=== PATIENT | female | born 1960 | race Caucasian/White ===

== ENCOUNTER 2016-12-12 06:45 | Inpatient (IN) ==
[2016-12-12] MEDS ORDERED: Lidocaine -MPF 1% 2 ML VIAL ID ONE (07:15)
[2016-12-12] MEDS ORDERED: ceFAZolin 1,000 MG in D5% in Water (Mini-Bag+) 100 ML IVPB ONE (07:16)
--- NOTE | 2016-12-12 07:19 | History & Physical Report ---
Date of Encounter: 12/12/16 Time of Encounter: 07:17 24 Hour HP Update - Instructions Instructions: If the History and Physical is less than 30 days old and was completed prior to A.M. admission and or procedure and has NOT been updated on calendar day of procedure please complete this update prior to performing procedure. - Update Patient reports changes in Medical Condition: No Changes in examination, assessment, or condition: No Changes in Medication: No Preop tests/diagnostics Reviewed: Yes Pre-Op MRSA Screen: Negative Surgery Remains Indicated: Yes Consent for Planned Operative Procedure(s) Verified: Yes - Pre-Operative Checklist Preoperative Checklist Indicated: No Prophylactic Antibiotic Ordered: Yes Home Medications Include Beta Amador: No Beta Amador Taken Today (Day of Surgery): No Beta Amador Taken Yesterday (Day Prior to Surgery): No Is VTE Prophylaxis Indicated?: NO
[2016-12-12] MEDS ORDERED: Albuterol 2.5 MG/3 ML NEBULIZER IH ONE (07:30)
[2016-12-12] MEDS ORDERED: *HR* Phenylephrine 10 MG/ML VIAL IVC ONE ×2 (08:01→10:13)
[2016-12-12] MEDS ORDERED: Albumin Human 25% 25 GM/100 ML IV.SOLN IV ONE ×2 (08:01→10:13)
[2016-12-12] MEDS ORDERED: Tranexamic Acid 1,000 MG/10 ML VIAL IV ONE ×2 (08:01→10:13)
[2016-12-12] MEDS ORDERED: Mannitol 25% vial 12.5 GM/50 ML VIAL IVP ONE ×2 (08:01→10:13)
[2016-12-12] MEDS ORDERED: *HR* Heparin 10,000 UNIT/10 ML VIAL IV ONE ×2 (08:01→10:13)
[2016-12-12] MEDS ORDERED: *HR* Magnesium Sulfate 2 GM/50 ML PIGGYBACK IVPB ONE ×2 (08:01→10:13)
[2016-12-12] MEDS ORDERED: Lidocaine 2% Syringe 100 MG/5 ML IV ONE ×2 (08:01→10:13)
--- NOTE | 2016-12-12 08:04 | Anesthesia Evaluation PreOp ---
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 HX Other Medical History: Denies Any Significant HX Anesthesia History: No Prior Anesthetic Complications, Past Anesthesia ( hysterctomy) Alcohol Use: occasionally, recent Drug use: none Medications and Allergies Aspirin [Lo-Dose Aspirin EC] 81 mg PO DAILY 11/23/16 [History] ClonazePAM [Klonopin] 1 mg PO BID 11/23/16 [History] Diltiazem HCl [Diltiazem 24Hr Cd] 120 mg PO DAILY 11/23/16 [History] Duloxetine HCl [Cymbalta] 120 mg PO DAILY 11/23/16 [History] Fluticasone Propionate Nasal [Flonase] 1 spray NS DAILY 11/23/16 [History] Gabapentin [Neurontin] 300 mg PO BID 11/23/16 [History] Hydroxychloroquine [Plaquenuil] 200 mg PO BID 11/23/16 [History] Lisinopril [Zestril] 5 mg PO DAILY 11/23/16 [History] Loratadine [Allergy Relief] 10 mg PO DAILY 11/23/16 [History] Methocarbamol [Robaxin-750] 750 mg PO TID 11/23/16 [History] Methotrexate [Otrexup] 12.5 mg PO FR 11/23/16 [History] Omeprazole [PriLOSEC] 40 mg PO DAILY 11/23/16 [History] PredniSONE 5 mg PO DAILY 11/23/16 [History] RisperiDONE [Risperidone] 2 mg PO HS 11/23/16 [History] Tramadol HCl [Ultram] 50 mg PO QID PRN 11/23/16 [History] Atorvastatin [Lipitor] 40 mg PO DAILY 12/12/16 [History] Calcium Carbonate [Calcium] 600 mg PO BID 12/12/16 [History] Hydrochlorothiazide 12.5 mg PO DAILY 12/12/16 [History] Varenicline Tartrate [Chantix] 1 mg PO BID 12/12/16 [History] Allergies No Known Allergies Allergy (Verified 12/12/16 07:25) - Meds/Allergy Pre-op Review Medications Reviewed: Yes Allergies Reviewed: Yes Beta Blockers on Current Med List: Yes If Beta Blockers taken, Date/Time (Last Dose taken): 12/12/2016 at 0735 Anesthesia Results - Labs Laboratory Tests 12/05/16 12/06/16 12/06/16 15:15 15:21 15:21 WBC 8.3 Hgb 11.4 L Hct 35.6 Plt Count 246 PT 11.0 INR 1.0 APTT 30.1 Sodium 134 L Potassium 4.0 BUN 13 Creatinine 0.92 - Imaging EKG: report reviewed (03/28/2016 SR, LVH) Additional studies: 11/23/2016 Cath normal coronaries severe per echo 04/23/2016 Echo LVEF 60% mild concentric LVH mild diastolic dysfunction moderate-severe , MG 36 mmHg, JULIA 0.& cm2 Anesthesia Exam O2 Sat Height 1.75 m Height 1.75 m Height 1.75 m Weight 94.801 kg Weight 94.801 kg Weight 94.801 kg O2 Sat by Pulse Oximetry 95 O2 Sat by Pulse Oximetry 95 O2 Sat by Pulse Oximetry 95 Vital Signs Temp Pulse Resp BP Pulse Ox 97.3 F L 89 18 110/72 95 12/12/16 07:12 12/12/16 07:12 12/12/16 07:12 12/12/16 07:12 12/12/16 07:12 Height: 5'9'' Weight: 209 lbs NPO (# of Hours): 8 Pain Scale: 0 Pain Scale Used: Numeric (1 - 10) - HEENT Pupil (Motor): EOMI Mallampati: II Teeth: Edentulous Oral Opening: Greater than 3 - PHOTO RETOUCHER LOC: Oriented PHOTO RETOUCHER Motor: Normal RUE, Normal LUE, Normal RLE, Normal LLE, Normal Face PHOTO RETOUCHER Sensory: Normal: RUE, LUE, RLE, LLE, Face - Cardiac Rhythm: Regular Murmur: None - Pulmonary Breath Sounds: bilateral Clear Respiratory Effort: Symmetrical Anesthesia Assess/Plan ASA Score: 4 Modified [place] Scale for Level of Consciousness: Cooperative, oriented, and tranquil Anesthetic Plan: General, Precautions (Patient understands that she is at increased risk for perioperative complications including myocardial infarct, arrhythmias, CVA, post op vent support/ICU stay, and . Patient wishes to proceed.) Monitoring Plan: Standard Monitors, A-Line, PAC, JUAN
[2016-12-12] MEDS ORDERED: *HR* Midazolam HCl 5 MG/5 ML VIAL IVP ONE (08:10)
[2016-12-12] MEDS ORDERED: *HR* FentaNYL (PF) 1,000 MCG/20 ML VIAL ONE (08:11)
[2016-12-12] MEDS ORDERED: *HR* Phenylephrine 10 MG/ML VIAL ONE (08:11)
[2016-12-12] MEDS ORDERED: Dexamethasone 4 MG/ML VIAL ONE (08:11)
[2016-12-12] MEDS ORDERED: *HR* Rocuronium Bromide 50 MG/5 ML VIAL ONE ×2 (08:11→09:29)
[2016-12-12] MEDS ORDERED: Ondansetron 4 MG/2 ML VIAL ONE (08:11)
[2016-12-12] MEDS ORDERED: Lidocaine 2% Syringe 100 MG/5 ML ONE (08:27)
[2016-12-12] MEDS ORDERED: Tranexamic Acid 1,000 MG/10 ML VIAL ONE (09:27)
[2016-12-12] MEDS ORDERED: Nitroglycerin 25 MG/250 ML INFUS..BTL IVC ONE (09:51)
[2016-12-12] MEDS ORDERED: Albumin Human 5% 50.0 GM/1,000 ML VIAL ONE (09:51)
[2016-12-12] MEDS ORDERED: niCARdipine 40 MG/200 ML MLS IVC ONE (09:51)
[2016-12-12] MEDS ORDERED: Protamine Sulfate 250 MG/25 ML VIAL IVP ONE (10:16)
[2016-12-12] MEDS ORDERED: Protamine Sulfate 50 MG/5 ML VIAL IVP ONE (10:16)
--- NOTE | 2016-12-12 13:10 | Operative Note ---
Date of procedure: 12/12/16 Pre-op diagnosis: Aortic stenosis, severe. Post-op diagnosis: same Procedure: 1. Aortic valve replacement (#25 Mosaic ultra porcine tissue valve). Implants: 1. #25 Mosaic ultra porcine tissue valve. Complications: None. Anesthesia: ZEYAD Surgeon: Teofilo Castro Operations Management Trainee: Robert Uribe Specimen: 1. Aortic valve leaflets. Condition: stable Disposition: ICU Procedure in Detail: INDICATIONS FOR OPERATION: The patient is a 56-year-old hypertensive lady with hypercholesterolemia and a known bicuspid aortic valve who had been referred for aortic valve replacement in May 2016. At the same time the patient also developed an infected right second toe and was found to have osteomyelitis. This was treated with partial amputation, debridement, and prolonged antibiotic therapy. In the interim the patient has become symptomatic, complaining of exertional substernal chest pain , shortness of breath, and dyspnea on exertion. The last echocardiogram the patient had revealed an LVEF 60% with normal left ventricular size and systolic function. Mild concentric hypertrophy of the left ventricle was noted as well as moderate to severe aortic stenosis. She had a mean gradient of 36 mmHg and an aortic valve area of 0.7 cm. The osteomyelitis right second toe has resolved and the patient has been recommended for aortic valve replacement for symptomatic aortic stenosis. FINDINGS AT OPERATION: The aorta was normal caliber and had calcifications laterally. The aortic valve was a moderately calcified bicuspid structure. The total bypass time was 113 minutes, cross-clamp time 71 minutes, potential hypothermia of 33.5C. DESCRIPTION OF OPERATION: After obtaining informed consent from the patient, she was taken to the operating room more satisfactory general ventricular anesthetic was induced. Appropriate monitoring lines were placed and the patient's chest, abdomen, and lower extremities were prepped and draped in a sterile fashion. A standard median sternotomy incision was made and the sternum divided. The sternum was and the pericardium opened and reflected laterally. The patient was indicated for cannulation by placing purse string sutures the distal ascending aorta, mid-ascending aorta, right atrial appendage, and mid right atrial body. The patient was heparinized and released he was greater than 200 seconds, the aorta was cannulated followed by placement of a retrograde cardioplegia cannula through the mid right atrial body and into the coronary sinus. A dual stage venous cannula was placed to the right atrial appendage and into the IVC. A stab-in antegrade metabolic and was placed in the mid ascending aorta. The patient was placed on bypass and she was cooled to 33.5C. An LV vent was placed through the right superior pulmonary vein across the mitral valve and into the left ventricle. The aorta was crossclamped and the patient received 700 mL of cold antegrade crystalloid cardioplegia aortic root, followed by 500 mL of cold retrograde crystalloid cardioplegia through the coronary sinus. Patient's heart obtained rapid diastolic arrest. A transverse aortotomy incision was then made proximal E47 meters above the aortic annulus. The incision was extended laterally and the aortic valve was identified. It was found to be a moderately calcified bicuspid structure. The aortic valve leaflets were excised and remaining calcification was debrided using rongeur forceps. The aortic annulus was sized and found to accommodate a # 25 Mosaic ultra porcine tissue valve. The patient received another dose of cold retrograde crystalloid cardioplegia through the coronary sinus and every 15 minutes during the remaining cross-clamp interval. Pledgeted 2-0 Tycron valve sutures then placed through the aortic annulus from the ventricular aspect. After the aortic valve was prepared and the water baths, the valve sutures were placed through the sewing ring and the valve was lowered into position. The valve sutures were then secured. Once the valve was in place both the left main and right coronary ostia were identified. Retrograde crystalloid cardioplegia could be seen exiting the left main ostium. The aortotomy incision was closed in 2 layers using a pledgeted 4-0 Prolene suture. The first layer was a running horizontal mattress technique and the second layer was a running simple technique. Rewarming was begun at this time. The patient was placed in steep Trendelenburg and the aortic cross clamp was slowly released while administering retrograde crystalloid cardioplegia. This allowed for de-airing of the ascending aorta and the left ventricle. During rewarming the patient's heart rhythm remained bradycardic and 2 sets of temporary epicardial patient was placed, one atrial and one ventricular. The patient was paced in a DDD mode at 80 pulses per minute. Additional de-airing maneuvers performed by tipping the left ventricle into the sternotomy incision and venting the left ventricular apex with an 18-gauge needle while ventilating the lungs. When no further air was expelled the vent site was closed with a 5-0 Prolene suture. Three chest tissues were placed, 2 in the mediastinum one into the right pleural space. When the patient's systemic temperature reached 36C, the left ventricular vent was removed and the purse string suture was secured. She was ventilated and slowly weaned from bypass while continuing to de-air through the antegrade cardioplegia site. Protamine was administered and the aortic, venous, retrograde cardioplegia cannula removed. The pursestring sutures were secured and each was reinforced with a 4-0 Prolene suture. The pericardium could not be reapproximated in the midline due to excessive tension. The sternum was reapproximated using double wires, and the pectoralis major fascia, rectus abdominis fascia, subcutaneous tissue, and skin edges were reapproximated using running Vicryl sutures. A negative pressure sterile dressing was applied. The patient was transferred to the ICU and satisfactory postoperative condition. There were no intraoperative complications, and the instrument, needle, and sponge count were correct at the end of operation. - Open Heart Detail Cardiopulmonary Bypass Time (mins): 113 Aortic Cross Clamp Time (mins): 71 Intentional Hypothermia Temperature (C.): 33.5
[2016-12-12] MEDS ORDERED: Acetaminophen 325 MG TABLET PO PRN (13:17)
[2016-12-12] MEDS ORDERED: Ondansetron 4 MG/2 ML VIAL IVP PRN (13:17)
[2016-12-12] MEDS ORDERED: Naloxone 0.4 MG/ML INJ IVP PRN (13:17)
[2016-12-12] MEDS ORDERED: Insulin Regular, Human 100 UNIT/ML IV PRN (13:17)
[2016-12-12] MEDS ORDERED: Calcium Chloride 1,000 MG in 0.9 % Sodium Chloride 100 ML IVPB PRN (13:17)
[2016-12-12] MEDS ORDERED: Potassium Chloride 40 MEQ/200 ML BAG IVPB PRN (13:17)
[2016-12-12] MEDS ORDERED: Magnesium Sulfate 2 GM in D5% in Water 100 ML IVPB PRN (13:17)
[2016-12-12] MEDS ORDERED: Acetaminophen 650 MG RECTAL SUPP RC PRN (13:17)
[2016-12-12] MEDS ORDERED: *HR* Dextrose 50 % in Water (Syg) 50 ML SYRINGE IVP PRN ×2 (13:17→14:29)
[2016-12-12] MEDS ORDERED: Norepinephrine 4 MG in D5% in Water 250 ML IVC SCH (13:30)
[2016-12-12] MEDS ORDERED: niCARdipine 40 MG/200 ML MLS IVC SCH (13:30)
[2016-12-12] MEDS ORDERED: 0.9 % Sodium Chloride 250 ML ONE (13:36)
[2016-12-12] MEDS: Pantoprazole 40 MG VIAL IVP SCH (13:50)
[2016-12-12] MEDS: *HR* Morphine 2 MG/ML SYRINGE IVP PRN ×3 (13:50→22:49)
[2016-12-12] MEDS: 0.9 % Sodium Chloride w KCl 20 MEQ/1,000 ML MLS IVC SCH (13:51)
[2016-12-12 13:52] LABS: Basophils % 0.2 %; Eosinophils # 0.1 K/mcL (0.0-0.6); Eosinophils % 0.4 %; Hematocrit 27.3 % (35.3-44.9); Immature Granulocytes % 1.7 % (0-4); Lymphocytes # 1.2 K/mcL (0.6-4.6); Lymphocytes % 5.3 %; Mean Corpuscular HGB Conc 32.6 g/dL (31.6-35.5); Mean Corpuscular Volume 95.1 fL (83.0-100.0); Mean Platelet Volume 9.4 fL (9.4-12.4); Monocytes # 1.1 K/mcL (0.0-1.3); Monocytes % 5.2 %; Platelet Count 174 K/mcL (140-400); Red Blood Count 2.87 M/mcL (3.82-4.97); Red Cell Distribution Width 15.8 % (11.5-14.5); Segmented Neutrophils % 87.2 %
[2016-12-12] MEDS: Ringers Solution, Lactated 1,000 ML IVC SCH (13:52)
[2016-12-12 13:53] LABS: Hemoglobin 8.9 g/dL (11.5-15.4); Neutrophils # 19.2 K/mcL (1.6-8.9)
[2016-12-12 13:53] LABS: ABG Base Excess -1.1 mEq/L (-2.0 to 3.0); ABG HCO3 24.8 mEQ/L (21-27); ABG Oxygen Saturation 96 % (95-98); ABG PCO2 46 mmHg (35-45); ABG PH 7.34 pH Units (7.32-7.45); ABG PO2 90 mmHg (85-104); ABG TCO2 26.2 mEq/L (20-26)
[2016-12-12 13:55] LABS: Blood Gas FiO2 50 %
[2016-12-12 14:00] LABS: INR 1.3
[2016-12-12 14:03] LABS: Activated Partial Thrombo Time 31.7 Seconds (26.0-36.0)
[2016-12-12 14:05] LABS: Blood Urea Nitrogen 7 mg/dL (7-20); Carbon Dioxide 24 mEq/L (19-29); Chloride 106 mEq/L (98-109); Potassium 3.6 mEq/L (3.5-4.5); Sodium 138 mEq/L (136-145)
[2016-12-12 14:06] LABS: BUN/Creatinine Ratio 10 (6-26); Glucose 206 mg/dL (70-99); Magnesium 2.5 mg/dL (1.6-2.6); Osmolality,Calculated 290 (280-300); eGFR For African Americans > 60 (> 60); eGFR For Non-African Americans > 60 (> 60)
[2016-12-12 14:10] LABS: Prothrombin Time 13.7 Seconds (9.4-12.1)
--- NOTE | 2016-12-12 14:13 | Anesthesia Evaluation Post Op ---
Date of Encounter: 12/12/16 Time of Encounter: 14:11 - Vital Signs Vital Signs: Last Vital Signs Temp 98.3 F 12/12/16 14:00 Pulse 76 12/12/16 14:00 Resp 11 12/12/16 14:00 BP 109/59 12/12/16 14:00 Pulse Ox 100 12/12/16 13:45 - Lungs Lungs: Clear Ascult./Percussion - Airway Airway: Intubated - Cardiovascular Regular Rate - Mental Status Mental Status: Sedated - Nausea Vomiting Nausea Vomiting: Not Present - Hydration Hydration: NPO Notes: Stable post op AVR, on vent. sedated. No anesthesia complications. 12/12/16 14:12
[2016-12-12] MEDS ORDERED: Insulin Human Regular 100 UNIT in 0.9 % Sodium Chloride 100 ML IVC SCH (14:30)
--- NOTE | 2016-12-12 15:28 | Electrocardiograph Report ---
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
[2016-12-12 15:58] LABS: ABG Base Excess 3.3 mEq/L (-2.0 to 3.0); ABG Glucose 118 mg/dL (60-95); ABG HCO3 28.5 mEQ/L (21-27); ABG Hematocrit 26 % (35-51); ABG Ionized Calcium 1.16 mmol/L (1.15-1.35); ABG Oxygen Saturation 100 % (95-98); ABG PCO2 46 mmHg (35-45); ABG PO2 389 mmHg (85-104); ABG TCO2 29.9 mEq/L (20-26)
[2016-12-12 15:59] LABS: ABG Base Excess 0.9 mEq/L (-2.0 to 3.0); ABG Glucose 166 mg/dL (60-95); ABG Hematocrit 22 % (35-51); ABG Ionized Calcium 1.06 mmol/L (1.15-1.35); ABG Oxygen Saturation 100 % (95-98); ABG PCO2 43 mmHg (35-45); ABG PH 7.39 pH Units (7.32-7.45); ABG PO2 287 mmHg (85-104); ABG TCO2 27.3 mEq/L (20-26)
[2016-12-12 15:59] LABS: ABG Base Excess 3.3 mEq/L (-2.0 to 3.0); ABG Glucose 179 mg/dL (60-95); ABG HCO3 27.8 mEQ/L (21-27); ABG Hematocrit 19 % (35-51); ABG Ionized Calcium 1.01 mmol/L (1.15-1.35); ABG Oxygen Saturation 100 % (95-98); ABG PCO2 41 mmHg (35-45); ABG PH 7.44 pH Units (7.32-7.45); ABG PO2 274 mmHg (85-104); ABG TCO2 29.1 mEq/L (20-26)
[2016-12-12 15:59] LABS: ABG Glucose 176 mg/dL (60-95); ABG HCO3 26.5 mEQ/L (21-27); ABG Hematocrit 22 % (35-51); ABG Ionized Calcium 1.05 mmol/L (1.15-1.35); ABG Oxygen Saturation 100 % (95-98); ABG PCO2 40 mmHg (35-45); ABG PH 7.43 pH Units (7.32-7.45); ABG PO2 295 mmHg (85-104); ABG TCO2 27.7 mEq/L (20-26)
[2016-12-12 16:00] LABS: ABG Base Excess -1.1 mEq/L (-2.0 to 3.0); ABG Glucose 169 mg/dL (60-95); ABG HCO3 24.3 mEQ/L (21-27); ABG Hematocrit 21 % (35-51); ABG Ionized Calcium 1.06 mmol/L (1.15-1.35); ABG Oxygen Saturation 100 % (95-98); ABG PCO2 43 mmHg (35-45); ABG PH 7.36 pH Units (7.32-7.45); ABG PO2 237 mmHg (85-104); ABG TCO2 25.6 mEq/L (20-26)
[2016-12-12 16:00] LABS: ABG Base Excess -0.6 mEq/L (-2.0 to 3.0); ABG Glucose 123 mg/dL (60-95); ABG HCO3 26.5 mEQ/L (21-27); ABG Hematocrit 20 % (35-51); ABG Ionized Calcium 1.04 mmol/L (1.15-1.35); ABG Oxygen Saturation 100 % (95-98); ABG PCO2 59 mmHg (35-45); ABG PH 7.26 pH Units (7.32-7.45); ABG PO2 331 mmHg (85-104); ABG TCO2 28.3 mEq/L (20-26)
[2016-12-12 16:01] LABS: ABG Base Excess 0.1 mEq/L (-2.0 to 3.0); ABG Glucose 130 mg/dL (60-95); ABG HCO3 24.6 mEQ/L (21-27); ABG Hematocrit 22 % (35-51); ABG Ionized Calcium 1.01 mmol/L (1.15-1.35); ABG Oxygen Saturation 100 % (95-98); ABG PCO2 38 mmHg (35-45); ABG PH 7.42 pH Units (7.32-7.45); ABG PO2 385 mmHg (85-104); ABG TCO2 25.8 mEq/L (20-26)
[2016-12-12 16:04] LABS: ABG PCO2 43 mmHg (35-45); ABG PO2 274 mmHg (85-104)
[2016-12-12 16:05] LABS: ABG Base Excess 1.6 mEq/L (-2.0 to 3.0); ABG Glucose 154 mg/dL (60-95); ABG HCO3 26.6 mEQ/L (21-27); ABG Hematocrit 24 % (35-51); ABG Ionized Calcium 1.06 mmol/L (1.15-1.35); ABG TCO2 27.9 mEq/L (20-26)
[2016-12-12 16:06] LABS: ABG Oxygen Saturation 100 % (95-98)
[2016-12-12 16:07] LABS: ABG Base Excess 4.6 mEq/L (-2.0 to 3.0); ABG HCO3 29.2 mEQ/L (21-27); ABG Hematocrit 30 % (35-51); ABG Oxygen Saturation 100 % (95-98); ABG PCO2 43 mmHg (35-45); ABG PH 7.44 pH Units (7.32-7.45); ABG PO2 165 mmHg (85-104); ABG TCO2 30.5 mEq/L (20-26)
[2016-12-12 16:08] LABS: ABG Glucose 116 mg/dL (60-95); ABG Ionized Calcium 1.15 mmol/L (1.15-1.35)
[2016-12-12 16:12] LABS: ABG Base Excess 2.5 mEq/L (-2.0 to 3.0); ABG HCO3 27.8 mEQ/L (21-27); ABG Oxygen Saturation 98 % (95-98); ABG PCO2 46 mmHg (35-45); ABG PH 7.39 pH Units (7.32-7.45); ABG PO2 113 mmHg (85-104); ABG TCO2 29.2 mEq/L (20-26); Blood Gas FiO2 40 %
[2016-12-12] MEDS: ceFAZolin 2,000 MG in D5% in Water 100 ML IVPB SCH (16:24)
[2016-12-12 18:06] LABS: ABG Base Excess 3.3 mEq/L (-2.0 to 3.0); ABG HCO3 28.5 mEQ/L (21-27); ABG Oxygen Saturation 95 % (95-98); ABG PCO2 46 mmHg (35-45); ABG PO2 75 mmHg (85-104); ABG TCO2 29.9 mEq/L (20-26); Blood Gas FiO2 28 %
[2016-12-12] MEDS: Metoclopramide 10 MG/2 ML VIAL IVP SCH (18:08)
[2016-12-12] MEDS: *HR* OxyCODONE/APAP 5/325 TABLET PO PRN (20:15)
[2016-12-12] MEDS: Chlorhexidine Rinse 15 ML MOUTHWASH MM SCH (20:16)
[2016-12-12] MEDS: Nitroglycerin 25 MG/250 ML INFUS..BTL IVC SCH (20:38)
[2016-12-13] MEDS: Metoclopramide 10 MG/2 ML VIAL IVP SCH ×5 (00:29→23:01)
[2016-12-13] MEDS: *HR* Morphine 2 MG/ML SYRINGE IVP PRN ×5 (00:29→15:32)
[2016-12-13] MEDS: ceFAZolin 2,000 MG in D5% in Water 100 ML IVPB SCH (00:29)
[2016-12-13] MEDS: Nitroglycerin 25 MG/250 ML INFUS..BTL IVC SCH ×4 (00:30→18:19)
[2016-12-13 04:52] LABS: INR 1.1; Prothrombin Time 12.4 Seconds (9.4-12.1)
[2016-12-13 04:55] LABS: Activated Partial Thrombo Time 28.5 Seconds (26.0-36.0)
[2016-12-13 04:57] LABS: Basophils % 0.1 %; Hematocrit 21.7 % (35.3-44.9); Immature Granulocytes % 0.7 % (0-4); Lymphocytes # 1.1 K/mcL (0.6-4.6); Lymphocytes % 9.3 %; Mean Corpuscular HGB Conc 32.3 g/dL (31.6-35.5); Mean Platelet Volume 9.7 fL (9.4-12.4); Monocytes # 0.9 K/mcL (0.0-1.3); Monocytes % 7.1 %; Neutrophils # 10.1 K/mcL (1.6-8.9); Platelet Count 115 K/mcL (140-400); Red Blood Count 2.26 M/mcL (3.82-4.97); Red Cell Distribution Width 16.2 % (11.5-14.5); Segmented Neutrophils % 82.8 %
[2016-12-13 05:43] LABS: BUN/Creatinine Ratio 11 (6-26); Blood Urea Nitrogen 7 mg/dL (7-20); Carbon Dioxide 24 mEq/L (19-29); Chloride 103 mEq/L (98-109); Glucose 98 mg/dL (70-99); Osmolality,Calculated 282 (280-300); Potassium 3.9 mEq/L (3.5-4.5); Sodium 137 mEq/L (136-145); eGFR For African Americans > 60 (> 60); eGFR For Non-African Americans > 60 (> 60)
[2016-12-13 06:03] LABS: Calcium 8.2 mg/dL (8.6-10.8)
[2016-12-13] MEDS: *HR* OxyCODONE/APAP 5/325 TABLET PO PRN ×3 (07:39→17:13)
[2016-12-13] MEDS: Chlorhexidine Rinse 15 ML MOUTHWASH MM SCH ×2 (07:40→20:35)
[2016-12-13] MEDS: Pantoprazole 40 MG VIAL IVP SCH (07:40)
--- NOTE | 2016-12-13 08:52 | Cardiothoracic Progress Note ---
Date of Encounter: 12/13/16 Time of Encounter: 08:49 - Assessment and plan (1) Aortic stenosis due to bicuspid aortic valve Current Visit: Yes Status: Acute The patient is recovering well from her aortic valve replacement using a #25 Mosaic ultra porcine tissue valve. She has remained hemodynamically stable. She is extubated and breathing comfortably. She is no longer paced. The arterial line, Hopper catheter, and Durbin-Ellie catheter be removed. The patient will be transferred to the stepdown unit later today. The assessment and plan as outlined above was discussed with the patient and/or family members who expressed understanding and agreement. All questions were answered. - Subjective Procedure(s) Performed: POD#1 S/P AVR Interval history: The patient remained hemodynamically stable overnight. She is extubated and breathing comfortably. She is sitting in a chair at the bedside without difficulty. She has no complaints. Vital Signs, Last 4 Hours Temp Pulse Resp BP Pulse Ox 12/13/16 08:14 16 97 12/13/16 08:00 98.7 F 86 10 109/51 95 12/13/16 07:00 98.7 F 85 17 133/57 94 12/13/16 06:00 98.7 F 88 16 136/61 95 12/13/16 05:00 89 14 116/53 96 Oxgyen Flow Rate Oxygen Flow Rate (LPM) 2 Clinical Data, last 8 Hours Output, Chest Tube Drainage 36 Amount [Mediastinal #2] Output, Chest Tube Drainage 0 Amount [Mediastinal #2] Output, Chest Tube Drainage 5 Amount [Mediastinal #2] Output, Chest Tube Drainage 0 Amount [Mediastinal #2] Output, Chest Tube Drainage 25 Amount [Mediastinal #2] Output, Chest Tube Drainage 0 Amount [Mediastinal #2] Output, Chest Tube Drainage 36 Amount [Mediastinal #1] Output, Chest Tube Drainage 0 Amount [Mediastinal #1] Output, Chest Tube Drainage 35 Amount [Mediastinal #1] Output, Chest Tube Drainage 20 Amount [Mediastinal #1] Output, Chest Tube Drainage 20 Amount [Mediastinal #1] Output, Chest Tube Drainage 45 Amount [Mediastinal #1] Weight 12/11/16 12/12/16 12/13/16 23:59 23:59 23:59 Weight 94.801 kg - Physical Examination General: Conversant, No Apparent Distress Neck: No JVD, Normal carotid pulses Cardiac: Reg Rate and Rhythm, Normal S1 and S2, No Murmur Incision: No signs of infection, Dry/intact dressing Chest tubes: Minimal drainage, Other (No air leak.) Pacing Wires: In place Lungs: Normal Breath Sounds, No Wheeze, Rales, Rhonchi Neuro: Alert and responsive, No focal deficits noted Vascular: Normal capillary refill Musculoskeletal: No Chest Wall Tenderness Extremities: No Clubbing, No Cyanosis, No Edema - Labs 12/13/16 04:12 12/13/16 04:12 Lab Results, Last 24 hours 12/12/16 12/12/16 12/12/16 13:49 13:49 13:49 WBC 22.0 H D Hgb 8.9 L D Hct 27.3 L Plt Count 174 INR 1.3 APTT 31.7 Sodium 138 Potassium 3.6 Chloride 106 Carbon Dioxide 24 BUN 7 Creatinine 0.71 Glucose 206 H Calcium 7.0 L Magnesium 2.5 12/13/16 12/13/16 12/13/16 04:12 04:12 04:12 WBC 12.2 H Hgb 7.0 L D Hct 21.7 L Plt Count 115 L INR 1.1 APTT 28.5 Sodium 137 Potassium 3.9 Chloride 103 Carbon Dioxide 24 BUN 7 Creatinine 0.64 Glucose 98 Calcium 8.2 L D Magnesium 2.0 - Imaging Chest Xray: image reviewed (No pneumothorax. Minimal left lower lobe atelectasis.) - VTE Reasons for not Prescribing Prophylaxis: Treatment not Indicated - Low risk for VTE Documentation of Mechanical Device: Graduated compression elastic hosiery Consult Discharge Plan - Plan Referrals: Becki Ruggiero CNP [Primary Care Provider] -
[2016-12-13] MEDS ORDERED: Furosemide 20 MG/2 ML VIAL IVP SCH (09:00)
[2016-12-13] MEDS ORDERED: Aspirin Enteric Coated 81 MG Tablet PO SCH (09:00)
[2016-12-13] MEDS ORDERED: D5% in Water 1,000 ML IVC PRN ×2 (09:11→15:38)
[2016-12-13] MEDS ORDERED: *HR* Dextrose 50 % in Water (Syg) 50 ML SYRINGE IVP PRN ×3 (09:11→15:38)
[2016-12-13] MEDS ORDERED: Dextrose Gel 15 GM PO PRN ×4 (09:11→15:38)
[2016-12-13] MEDS ORDERED: *HR* Heparin 5,000 UNIT/ML VIAL SQ SCH (09:15)
[2016-12-13] MEDS: Ringers Solution, Lactated 1,000 ML IVC SCH (09:38)
[2016-12-13] MEDS ORDERED: Ondansetron 4 MG/2 ML VIAL IVP PRN (10:55)
[2016-12-13] MEDS ORDERED: Insulin Regular, Human 100 UNIT/ML IV PRN (10:55)
[2016-12-13] MEDS ORDERED: *HR* Morphine 2 MG/ML SYRINGE IVP PRN (10:55)
[2016-12-13] MEDS ORDERED: Acetaminophen 325 MG TABLET PO PRN (10:55)
[2016-12-13] MEDS ORDERED: Naloxone 0.4 MG/ML INJ IVP PRN (10:55)
[2016-12-13] MEDS ORDERED: Insulin LISPRO 300 UNITS/3 ML VIAL SQ SCH ×2 (11:30→21:00)
[2016-12-13] MEDS: Methocarbamol 750 MG TABLET PO SCH ×3 (11:53→20:35)
[2016-12-13] MEDS: Loratadine 10 MG TABLET PO SCH (11:53)
[2016-12-13] MEDS: Gabapentin 300 MG CAPSULE PO SCH ×2 (11:53→20:34)
[2016-12-13] MEDS: predniSONE 5 MG TABLET PO SCH (11:53)
[2016-12-13] MEDS: Folic Acid 1 MG TABLET PO SCH (11:54)
[2016-12-13] MEDS: Fluticasone Propionate Nasal 50 MCG/SPRAY BOTTLE NS SCH (11:56)
[2016-12-13] MEDS: clonazePAM 1 MG TABLET PO SCH ×2 (11:58→20:33)
[2016-12-13] MEDS: 0.9 % Sodium Chloride w KCl 20 MEQ/1,000 ML MLS IVC SCH (12:15)
[2016-12-13] MEDS: Insulin LISPRO 300 UNITS/3 ML VIAL SQ SCH ×2 (16:09→19:56)
[2016-12-13] MEDS ORDERED: *HR* Promethazine 25 MG/ML VIAL IVP PRN (17:24)
[2016-12-13] MEDS ORDERED: *HR* LORazepam 2 MG/ML VIAL IVP PRN ×2 (17:24)
[2016-12-13] MEDS: Furosemide 20 MG/2 ML VIAL IVP SCH (20:33)
[2016-12-13] MEDS: risperiDONE 1 MG TABLET PO SCH (20:33)
[2016-12-14] MEDS: *HR* OxyCODONE/APAP 5/325 TABLET PO PRN ×4 (00:20→19:35)
[2016-12-14] MEDS: Metoclopramide 10 MG/2 ML VIAL IVP SCH ×4 (05:01→23:31)
[2016-12-14] MEDS: Nitroglycerin 25 MG/250 ML INFUS..BTL IVC SCH ×2 (06:50→11:51)
--- NOTE | 2016-12-14 07:34 | Cardiothoracic Progress Note ---
Date of Encounter: 12/14/16 Time of Encounter: 07:32 - Assessment and plan (1) Aortic stenosis due to bicuspid aortic valve Current Visit: Yes Status: Acute The assessment and plan as outlined above was discussed with the patient and/or family members who expressed understanding and agreement. All questions were answered. We will leave the chest tubes for now. Hopefully, we can discontinue them later today or tomorrow. We will transfuse 2 units of packed red blood cells for hemoglobin of 7. I will add Toradol for postoperative pain relief. - Subjective Interval history: The patient complains of postoperative pain over her right chest wall. Vital Signs, Last 4 Hours Temp Pulse Resp BP Pulse Ox 12/14/16 07:28 97.7 F 12/14/16 05:08 81 12/14/16 05:06 98.1 F 12/14/16 04:59 12 94 12/14/16 04:00 81 16 85/60 96 Oxgyen Flow Rate Oxygen Flow Rate (LPM) 2 Clinical Data, last 8 Hours Output, Chest Tube Drainage 40 Amount [Mediastinal #2] Output, Chest Tube Drainage 8 Amount [Mediastinal #2] Output, Chest Tube Drainage 20 Amount [Mediastinal #1] Output, Chest Tube Drainage 40 Amount [Mediastinal #1] Output, Urine Amount 550 Output, Urine Amount 125 Weight 12/12/16 12/13/16 12/14/16 23:59 23:59 23:59 Weight 94.801 kg 104.145 kg Lungs are clear to percussion and auscultation. Heart is in a normal sinus rhythm. All incisions are healing well without signs of infection and the sternum is stable. The chest tubes continued to drain, but there is no air leak. - Labs 12/13/16 04:12 12/13/16 04:12 - VTE Reasons for not Prescribing Prophylaxis: Treatment not Indicated - Low risk for VTE Documentation of Mechanical Device: Graduated compression elastic hosiery Consult Discharge Plan - Plan Referrals: Becki Ruggiero CNP [Primary Care Provider] -
[2016-12-14] MEDS: Furosemide 20 MG/2 ML VIAL IVP SCH ×2 (07:35→22:22)
[2016-12-14] MEDS: Gabapentin 300 MG CAPSULE PO SCH ×2 (07:36→22:22)
[2016-12-14] MEDS: predniSONE 5 MG TABLET PO SCH (07:37)
[2016-12-14] MEDS: Folic Acid 1 MG TABLET PO SCH (07:38)
[2016-12-14] MEDS: Methocarbamol 750 MG TABLET PO SCH ×3 (07:38→22:22)
[2016-12-14] MEDS: Aspirin Enteric Coated 81 MG Tablet PO SCH (07:38)
[2016-12-14] MEDS: Loratadine 10 MG TABLET PO SCH (07:38)
[2016-12-14] MEDS: Insulin LISPRO 300 UNITS/3 ML VIAL SQ SCH ×4 (07:39→22:21)
[2016-12-14] MEDS: clonazePAM 1 MG TABLET PO SCH ×2 (07:39→22:22)
[2016-12-14] MEDS: Fluticasone Propionate Nasal 50 MCG/SPRAY BOTTLE NS SCH (07:41)
[2016-12-14] MEDS: Chlorhexidine Rinse 15 ML MOUTHWASH MM SCH ×2 (07:41→22:21)
[2016-12-14] MEDS ORDERED: 0.9 % Sodium Chloride 250 ML ONE (08:09)
[2016-12-14] MEDS ORDERED: Pantoprazole 40 MG VIAL IVP SCH (09:00)
[2016-12-14] MEDS ORDERED: *HR* Methotrexate 2.5 MG TABLET PO SCH (09:02)
[2016-12-14] MEDS: Ketorolac 15 MG/ML VIAL IVP SCH ×3 (11:01→23:31)
[2016-12-14] MEDS: *HR* Heparin 5,000 UNIT/ML VIAL SQ SCH (17:16)
[2016-12-14] MEDS: risperiDONE 1 MG TABLET PO SCH (22:22)
[2016-12-14] MEDS: *HR* LORazepam 2 MG/ML VIAL IVP PRN (22:23)
[2016-12-14 23:50] LABS: Basophils % 0.3 %; Eosinophils # 0.1 K/mcL (0.0-0.6); Eosinophils % 1.3 %; Hematocrit 25.6 % (35.3-44.9); Immature Granulocytes % 0.7 % (0-4); Immature Platelets 4.5 % (1.1-6.1); Lymphocytes % 18.7 %; Mean Corpuscular HGB Conc 33.6 g/dL (31.6-35.5); Mean Corpuscular Hemoglobin 31.7 pg (28.0-33.3); Mean Corpuscular Volume 94.5 fL (83.0-100.0); Mean Platelet Volume 9.5 fL (9.4-12.4); Monocytes # 1.2 K/mcL (0.0-1.3); Monocytes % 11.1 %; Neutrophils # 7.4 K/mcL (1.6-8.9); Nucleated Red Blood Cells 0.2 /100 WBC (0); Platelet Count 170 K/mcL (140-400); Red Blood Count 2.71 M/mcL (3.82-4.97); Red Cell Distribution Width 16.1 % (11.5-14.5); Segmented Neutrophils % 67.9 %
[2016-12-14 23:51] LABS: Hemoglobin 8.6 g/dL (11.5-15.4)
[2016-12-15 00:01] LABS: BUN/Creatinine Ratio 15 (6-26); Blood Urea Nitrogen 12 mg/dL (7-20); Calcium 8.7 mg/dL (8.6-10.8); Carbon Dioxide 28 mEq/L (19-29); Chloride 97 mEq/L (98-109); Glucose 126 mg/dL (70-99); Osmolality,Calculated 281 (280-300); Potassium 3.4 mEq/L (3.5-4.5); Sodium 135 mEq/L (136-145); eGFR For African Americans > 60 (> 60); eGFR For Non-African Americans > 60 (> 60)
[2016-12-15] MEDS: *HR* OxyCODONE/APAP 5/325 TABLET PO PRN ×4 (04:11→19:08)
[2016-12-15] MEDS: *HR* Heparin 5,000 UNIT/ML VIAL SQ SCH ×2 (06:37→17:18)
[2016-12-15] MEDS: Ketorolac 15 MG/ML VIAL IVP SCH ×3 (06:37→17:18)
[2016-12-15] MEDS: Metoclopramide 10 MG/2 ML VIAL IVP SCH ×3 (06:37→17:19)
[2016-12-15] MEDS: Aspirin Enteric Coated 81 MG Tablet PO SCH (08:11)
[2016-12-15] MEDS: clonazePAM 1 MG TABLET PO SCH ×2 (08:11→21:13)
[2016-12-15] MEDS: Folic Acid 1 MG TABLET PO SCH (08:11)
[2016-12-15] MEDS: Loratadine 10 MG TABLET PO SCH (08:11)
[2016-12-15] MEDS: predniSONE 5 MG TABLET PO SCH (08:11)
[2016-12-15] MEDS: Methocarbamol 750 MG TABLET PO SCH ×3 (08:11→21:13)
[2016-12-15] MEDS: Gabapentin 300 MG CAPSULE PO SCH ×2 (08:12→21:12)
[2016-12-15] MEDS: Furosemide 20 MG/2 ML VIAL IVP SCH ×2 (08:12→21:12)
[2016-12-15] MEDS: Insulin LISPRO 300 UNITS/3 ML VIAL SQ SCH ×4 (08:13→21:41)
[2016-12-15] MEDS: Chlorhexidine Rinse 15 ML MOUTHWASH MM SCH ×2 (08:13→21:11)
[2016-12-15] MEDS: Fluticasone Propionate Nasal 50 MCG/SPRAY BOTTLE NS SCH (08:14)
--- NOTE | 2016-12-15 08:36 | Cardiothoracic Progress Note ---
Date of Encounter: 12/15/16 Time of Encounter: 08:34 - Assessment and plan (1) Aortic stenosis due to bicuspid aortic valve Current Visit: Yes Status: Acute The chest tubes were removed. The atrial wires were removed. The ventricular wires were painted with Betadine and cut off at the skin per Dr. Castro's request. We will check a stat portable chest x-ray. - Subjective Interval history: The patient has no complaints. Her postoperative pain is improved. Vital Signs, Last 4 Hours Temp Pulse Resp BP Pulse Ox 12/15/16 07:49 98.2 F 83 20 106/69 93 Oxgyen Flow Rate Oxygen Flow Rate (LPM) 3.5 Clinical Data, last 8 Hours Output, Chest Tube Drainage 0 Amount [Mediastinal #2] Output, Chest Tube Drainage 0 Amount [Mediastinal #1] Output, Urine Amount 240 Output, Urine Amount 650 Weight 12/13/16 12/14/16 12/15/16 23:59 23:59 23:59 Weight 104.145 kg 103.6 kg Lungs are clear to percussion and auscultation. Heart is in a normal sinus rhythm. All incisions are healing well without signs of infection and the sternum is stable. Chest tube drainage is minimal. - Labs 12/14/16 23:45 12/14/16 23:45 Lab Results, Last 24 hours 12/14/16 12/14/16 23:45 23:45 WBC 10.9 Hgb 8.6 L D Hct 25.6 L Plt Count 170 Sodium 135 L Potassium 3.4 L Chloride 97 L Carbon Dioxide 28 BUN 12 Creatinine 0.79 Glucose 126 H Calcium 8.7 - VTE Reasons for not Prescribing Prophylaxis: Treatment not Indicated - Low risk for VTE Documentation of Mechanical Device: Graduated compression elastic hosiery Consult Discharge Plan - Plan Referrals: Becki Ruggiero, LIVING SKILLS ADVISOR [Primary Care Provider] -
[2016-12-15] MEDS: risperiDONE 1 MG TABLET PO SCH (21:11)
[2016-12-15] MEDS: *HR* Morphine 2 MG/ML SYRINGE IVP PRN (22:05)
[2016-12-16] MEDS: Ketorolac 15 MG/ML VIAL IVP SCH ×4 (00:49→18:06)
[2016-12-16] MEDS: *HR* LORazepam 2 MG/ML VIAL IVP PRN ×2 (00:49→03:02)
[2016-12-16 04:16] LABS: Basophils % 0.4 %; Eosinophils # 0.3 K/mcL (0.0-0.6); Eosinophils % 2.2 %; Hematocrit 26.3 % (35.3-44.9); Hemoglobin 8.4 g/dL (11.5-15.4); Immature Granulocytes % 1.1 % (0-4); Lymphocytes # 2.4 K/mcL (0.6-4.6); Lymphocytes % 21.5 %; Mean Corpuscular HGB Conc 31.9 g/dL (31.6-35.5); Mean Corpuscular Hemoglobin 30.5 pg (28.0-33.3); Mean Corpuscular Volume 95.6 fL (83.0-100.0); Mean Platelet Volume 9.4 fL (9.4-12.4); Monocytes # 1.4 K/mcL (0.0-1.3); Monocytes % 12.1 %; Nucleated Red Blood Cells 0.2 /100 WBC (0); Platelet Count 182 K/mcL (140-400); Red Blood Count 2.75 M/mcL (3.82-4.97); Red Cell Distribution Width 16.3 % (11.5-14.5); Segmented Neutrophils % 62.7 %
[2016-12-16 04:26] LABS: BUN/Creatinine Ratio 16 (6-26); Blood Urea Nitrogen 12 mg/dL (7-20); Calcium 8.8 mg/dL (8.6-10.8); Carbon Dioxide 24 mEq/L (19-29); Chloride 99 mEq/L (98-109); Glucose 106 mg/dL (70-99); Osmolality,Calculated 278 (280-300); Sodium 134 mEq/L (136-145); eGFR For African Americans > 60 (> 60); eGFR For Non-African Americans > 60 (> 60)
[2016-12-16] MEDS: *HR* Heparin 5,000 UNIT/ML VIAL SQ SCH ×2 (05:32→18:06)
[2016-12-16] MEDS: Insulin LISPRO 300 UNITS/3 ML VIAL SQ SCH ×3 (08:51→18:00)
[2016-12-16] MEDS: Aspirin Enteric Coated 81 MG Tablet PO SCH (08:54)
[2016-12-16] MEDS: clonazePAM 1 MG TABLET PO SCH ×2 (08:54→21:22)
[2016-12-16] MEDS: Methocarbamol 750 MG TABLET PO SCH ×3 (08:54→22:33)
[2016-12-16] MEDS: Folic Acid 1 MG TABLET PO SCH (08:55)
[2016-12-16] MEDS: Loratadine 10 MG TABLET PO SCH (08:55)
[2016-12-16] MEDS: *HR* OxyCODONE/APAP 5/325 TABLET PO PRN ×3 (08:55→21:22)
[2016-12-16] MEDS: predniSONE 5 MG TABLET PO SCH (08:55)
[2016-12-16] MEDS: Chlorhexidine Rinse 15 ML MOUTHWASH MM SCH ×2 (08:56→21:22)
[2016-12-16] MEDS: Gabapentin 300 MG CAPSULE PO SCH ×2 (08:56→21:23)
[2016-12-16] MEDS: Furosemide 20 MG/2 ML VIAL IVP SCH (08:56)
--- NOTE | 2016-12-16 08:58 | Cardiothoracic Progress Note ---
Date of Encounter: 12/16/16 Time of Encounter: 08:56 - Assessment and plan (1) Aortic stenosis due to bicuspid aortic valve Current Visit: Yes Status: Acute I will increase her Lopressor dosage to 50 mg by mouth twice a day. We will order a sleeping pill. - Subjective Interval history: The patient complains of a poor night of sleep and mild postoperative chest wall pain. Vital Signs, Last 4 Hours Temp Pulse Resp BP Pulse Ox 12/16/16 07:24 98.6 F 98 16 118/72 96 12/16/16 06:22 14 95 Oxgyen Flow Rate Oxygen Flow Rate (LPM) 2 Clinical Data, last 8 Hours Output, Urine Amount 100 Weight 12/14/16 12/15/16 12/16/16 23:59 23:59 23:59 Weight 104.145 kg 103.6 kg 103.5 kg Lungs are clear to percussion and auscultation. Heart is in a normal sinus rhythm. There are no diastolic murmurs. All incisions are healing well without signs of infection and the sternum is stable. Chest x-ray reveals a small right pleural effusion and no pneumothorax. - Labs 12/16/16 03:50 12/16/16 03:50 Lab Results, Last 24 hours 12/16/16 12/16/16 03:50 03:50 WBC 11.1 Hgb 8.4 L Hct 26.3 L Plt Count 182 Sodium 134 L Potassium 4.0 Chloride 99 Carbon Dioxide 24 BUN 12 Creatinine 0.73 Glucose 106 H Calcium 8.8 - VTE Reasons for not Prescribing Prophylaxis: Treatment not Indicated - Low risk for VTE Documentation of Mechanical Device: Graduated compression elastic hosiery Consult Discharge Plan - Plan Referrals: Becki Ruggiero CNP [Primary Care Provider] -
[2016-12-16] MEDS: Fluticasone Propionate Nasal 50 MCG/SPRAY BOTTLE NS SCH (12:25)
[2016-12-16] MEDS: risperiDONE 1 MG TABLET PO SCH (21:23)
[2016-12-16] MEDS: traZODone 50 MG TABLET PO PRN (21:24)
[2016-12-17] MEDS: Ketorolac 15 MG/ML VIAL IVP SCH ×5 (00:33→23:25)
[2016-12-17] MEDS: *HR* OxyCODONE/APAP 5/325 TABLET PO PRN ×5 (03:48→21:58)
[2016-12-17] MEDS: Insulin LISPRO 300 UNITS/3 ML VIAL SQ SCH ×5 (05:13→21:59)
[2016-12-17 05:51] LABS: Basophils % 0.2 %; Eosinophils # 0.4 K/mcL (0.0-0.6); Eosinophils % 4.5 %; Hematocrit 23.3 % (35.3-44.9); Hemoglobin 7.5 g/dL (11.5-15.4); Immature Granulocytes % 0.9 % (0-4); Immature Platelets 3.5 % (1.1-6.1); Lymphocytes # 2.4 K/mcL (0.6-4.6); Lymphocytes % 29.7 %; Mean Corpuscular HGB Conc 32.2 g/dL (31.6-35.5); Mean Corpuscular Volume 96.3 fL (83.0-100.0); Mean Platelet Volume 9.7 fL (9.4-12.4); Monocytes # 0.9 K/mcL (0.0-1.3); Monocytes % 11.2 %; Neutrophils # 4.3 K/mcL (1.6-8.9); Platelet Count 206 K/mcL (140-400); Red Blood Count 2.42 M/mcL (3.82-4.97); Red Cell Distribution Width 16.1 % (11.5-14.5); Segmented Neutrophils % 53.5 %
[2016-12-17 06:11] LABS: BUN/Creatinine Ratio 18 (6-26); Blood Urea Nitrogen 13 mg/dL (7-20); Calcium 8.8 mg/dL (8.6-10.8); Carbon Dioxide 26 mEq/L (19-29); Chloride 100 mEq/L (98-109); Glucose 92 mg/dL (70-99); Osmolality,Calculated 282 (280-300); Sodium 136 mEq/L (136-145); eGFR For African Americans > 60 (> 60); eGFR For Non-African Americans > 60 (> 60)
[2016-12-17] MEDS: Furosemide 40 MG/4 ML VIAL IVP SCH ×3 (08:09→21:59)
[2016-12-17] MEDS: *HR* Heparin 5,000 UNIT/ML VIAL SQ SCH ×2 (08:09→18:18)
[2016-12-17] MEDS: Chlorhexidine Rinse 15 ML MOUTHWASH MM SCH ×2 (08:10→21:59)
[2016-12-17] MEDS: Methocarbamol 750 MG TABLET PO SCH ×3 (08:10→21:55)
[2016-12-17] MEDS: clonazePAM 1 MG TABLET PO SCH ×2 (08:10→21:54)
[2016-12-17] MEDS: Gabapentin 300 MG CAPSULE PO SCH ×2 (08:11→21:57)
[2016-12-17] MEDS: Folic Acid 1 MG TABLET PO SCH (08:11)
[2016-12-17] MEDS: predniSONE 5 MG TABLET PO SCH (08:11)
[2016-12-17] MEDS: Aspirin Enteric Coated 81 MG Tablet PO SCH (08:11)
[2016-12-17] MEDS: Loratadine 10 MG TABLET PO SCH (08:12)
[2016-12-17] MEDS: Fluticasone Propionate Nasal 50 MCG/SPRAY BOTTLE NS SCH (08:12)
--- NOTE | 2016-12-17 08:54 | Cardiothoracic Progress Note ---
Date of Encounter: 12/17/16 Time of Encounter: 08:53 - Assessment and plan (1) Aortic stenosis due to bicuspid aortic valve Current Visit: Yes Status: Acute I will increase her Lopressor dosage to 100 mg by mouth twice a day. Hopefully, she can be discharged tomorrow. - Subjective Interval history: The patient has no complaints and is ambulating without difficulty. Vital Signs, Last 4 Hours Temp Pulse Resp BP Pulse Ox 12/17/16 08:26 86 93 12/17/16 07:57 97.5 F L 89 18 156/74 Oxgyen Flow Rate Oxygen Flow Rate (LPM) 2 Clinical Data, last 8 Hours Output, Urine Amount 300 Output, Urine Amount 350 Weight 12/15/16 12/16/16 12/17/16 23:59 23:59 23:59 Weight 103.6 kg 103.5 kg 103.4 kg Lungs are clear to percussion and auscultation. Heart is in a normal sinus rhythm. All incisions are healing well without signs of infection and the sternum is stable. - Labs 12/17/16 05:15 12/17/16 05:15 Lab Results, Last 24 hours 12/17/16 12/17/16 05:15 05:15 WBC 8.0 Hgb 7.5 L Hct 23.3 L Plt Count 206 Sodium 136 Potassium 4.0 Chloride 100 Carbon Dioxide 26 BUN 13 Creatinine 0.72 Glucose 92 Calcium 8.8 - VTE Reasons for not Prescribing Prophylaxis: Treatment not Indicated - Low risk for VTE Documentation of Mechanical Device: Graduated compression elastic hosiery Consult Discharge Plan - Plan Referrals: Becki Ruggiero, HISTOLOGY MANAGER [Primary Care Provider] -
[2016-12-17] MEDS: Metoprolol 100 MG TABLET PO SCH ×2 (11:56→21:59)
[2016-12-17] MEDS: risperiDONE 1 MG TABLET PO SCH (21:53)
[2016-12-18] MEDS: traZODone 50 MG TABLET PO PRN (02:05)
[2016-12-18] MEDS: *HR* OxyCODONE/APAP 5/325 TABLET PO PRN ×4 (02:05→15:32)
[2016-12-18 04:43] LABS: Basophils % 0.3 %; Eosinophils # 0.4 K/mcL (0.0-0.6); Eosinophils % 4.1 %; Hematocrit 24.4 % (35.3-44.9); Immature Granulocytes % 0.5 % (0-4); Lymphocytes # 2.6 K/mcL (0.6-4.6); Lymphocytes % 26.2 %; Mean Corpuscular HGB Conc 32.8 g/dL (31.6-35.5); Mean Corpuscular Hemoglobin 31.3 pg (28.0-33.3); Mean Corpuscular Volume 95.3 fL (83.0-100.0); Mean Platelet Volume 9.5 fL (9.4-12.4); Monocytes % 9.7 %; Neutrophils # 5.8 K/mcL (1.6-8.9); Platelet Count 203 K/mcL (140-400); Red Blood Count 2.56 M/mcL (3.82-4.97); Red Cell Distribution Width 15.7 % (11.5-14.5); Segmented Neutrophils % 59.2 %
[2016-12-18 04:58] LABS: BUN/Creatinine Ratio 18 (6-26); Blood Urea Nitrogen 14 mg/dL (7-20); Calcium 8.6 mg/dL (8.6-10.8); Carbon Dioxide 25 mEq/L (19-29); Chloride 97 mEq/L (98-109); Glucose 105 mg/dL (70-99); Osmolality,Calculated 275 (280-300); Potassium 4.3 mEq/L (3.5-4.5); Sodium 132 mEq/L (136-145); eGFR For African Americans > 60 (> 60); eGFR For Non-African Americans > 60 (> 60)
[2016-12-18] MEDS: Ketorolac 15 MG/ML VIAL IVP SCH ×2 (06:12→12:06)
[2016-12-18] MEDS: *HR* Heparin 5,000 UNIT/ML VIAL SQ SCH (06:12)
--- NOTE | 2016-12-18 08:20 | Discharge Summary ---
Date of Encounter: 12/18/16 Time of Encounter: 08:12 - Discharge Diagnosis (1) Aortic stenosis due to bicuspid aortic valve Priority: Primary Status: Acute - Discharge Medications Prescriptions: OxyCODONE/APAP 5/325 [Percocet 5/325 MG] 1 each PO Q4HR PRN #30 tablet PRN Reason: Severe Pain Metoprolol [Lopressor] 50 mg PO BID #60 tablet traZODone [TraZODone] 25 mg PO HS #20 tablet Home Medications: Aspirin [Lo-Dose Aspirin EC] 81 mg PO DAILY 11/23/16 [History] Diltiazem HCl [Diltiazem 24Hr Cd] 120 mg PO DAILY 11/23/16 [History] Duloxetine HCl [Cymbalta] 120 mg PO DAILY 11/23/16 [History] Fluticasone Propionate Nasal [Flonase] 1 spray NS DAILY 11/23/16 [History] Gabapentin [Neurontin] 300 mg PO BID 11/23/16 [History] Hydroxychloroquine [Plaquenuil] 200 mg PO BID 11/23/16 [History] Lisinopril [Zestril] 5 mg PO DAILY 11/23/16 [History] Loratadine [Allergy Relief] 10 mg PO DAILY 11/23/16 [History] Methocarbamol [Robaxin-750] 750 mg PO TID 11/23/16 [History] Methotrexate [Otrexup] 12.5 mg PO FR 11/23/16 [History] Omeprazole [PriLOSEC] 40 mg PO DAILY 11/23/16 [History] Tramadol HCl [Ultram] 50 mg PO Q8H PRN 11/23/16 [History] clonazePAM [Klonopin] 1 mg PO BID 11/23/16 [History] predniSONE [PredniSONE] 5 mg PO DAILY 11/23/16 [History] risperiDONE [Risperidone] 2 mg PO HS 11/23/16 [History] Atorvastatin Calcium [Lipitor] 20 mg PO DAILY 12/12/16 [History] Calcium Carbonate [Calcium] 600 mg PO BID 12/12/16 [History] Folic Acid 1 mg PO DAILY 12/12/16 [History] Furosemide [Lasix] 20 mg PO BID 12/12/16 [History] Montelukast [Singulair] 10 mg PO HS 12/12/16 [History] Naproxen [Naprosyn] 500 mg PO BID 12/12/16 [History] Potassium Chloride [K-Tab ER] 20 meq PO DAILY 12/12/16 [History] Varenicline Tartrate [Chantix] 1 mg PO BID 12/12/16 [History] hydroCHLOROthiazide [Hydrochlorothiazide] 12.5 mg PO DAILY 12/12/16 [History] Metoprolol [Lopressor] 50 mg PO BID #60 tablet 12/18/16 [Rx] OxyCODONE/APAP 5/325 [Percocet 5/325 MG] 1 each PO Q4HR PRN #30 tablet 12/18/16 [Rx] traZODone [TraZODone] 25 mg PO HS #20 tablet 12/18/16 [Rx] Allergies/Adverse Reactions: Allergies No Known Allergies Allergy (Verified 12/12/16 07:25) Date of admission: 12/12/16 10:23 Primary care physician: Becki Ruggiero Consults: 12/12/16 13:17 Consult to Cardiac Rehabilitation-Phase1 [CONS] Routine Comment: Reason for Consult: Post open heart Call Completed: Yes 12/13/16 17:24 Consult to [employer] [CONS] Routine Reason for SW Consult: follow up for intermediate care needs Procedure(s) Performed: December 12, 2016. Aortic valve replacement with a 25 mm Medtronic Mosaic ultra porcine tissue valve. Discharging clinician: Vance Snow Anticipated date of discharge: 12/18/16 - Patient Status Disposition: Home, Self-Care Condition: Fair Functional capacity at discharge: independent ambulation Overall status at discharge: patient is progressing back to baseline - Discharge Instructions Follow Up With: Teofilo Castro MD [Partnered Physician] - 01/24/17 2:30 pm Becki Ruggiero CNP [Primary Care Provider] - 12/25/16 8:15 am () Yany Phoenix CNP [Partnered Physician] - (OFFICE WILL CALL PATIENT AT HOME WITH APPOINTMENT) - Hospital Course Hospital course: Ms. Llanes is a 56 year old female The patient is a 56-year-old female who presented with hypercholesterolemia, a bicuspid aortic valve and aortic valve stenosis. She was originally seen in May. However, she had osteomyelitis of her toe requiring amputation and prolonged antibiotics. She became symptomatic. On December 12, 2016, my partner Dr. Castro took the patient to the operating room for aortic valve replacement with a 25 mm Medtronic Mosaic ultra porcine tissue valve. The patient tolerated the procedure well. On December 13 transfer orders were written. On December 14 she did receive 2 units of packed red blood cells and did have the usual, expected acute postoperative blood loss anemia. On December 15 her chest tubes and pacing wires were removed. Chest x-ray prior to discharge revealed no pneumothorax. The patient otherwise did well and was discharged on December 19. At that time she was afebrile. Lungs were clear to percussion and auscultation. Heart was in a normal sinus rhythm. There were no diastolic murmurs. Hemoglobin was 8.2 and the patient was asymptomatic. Hemoglobin was stable. Discharge medications are on the [employer] and include Percocet for pain. I did check the [employer] automated Rx reporting system. The patient was postoperative and given a one-week supply. Appropriate precautions were given. The patient was to return to her previous a regular diet. She was to avoid heavy lifting for a total of 3 months after surgery, but to walk as much as possible. She was to avoid driving for 1 month. She was to follow up and see Dr. Castro in 4 weeks as directed. She was to follow -up with her family doctor and telephone lineman as directed. She was to call sooner for any difficulties. - Time Spent with Patient Total time spent providing and/or coordinating discharge services: Physical Examination Vital Signs, Last 4 Hours Temp Pulse Resp BP Pulse Ox 12/18/16 08:06 16 91 12/18/16 07:31 98.2 F 79 17 141/77 98 12/18/16 04:23 18 95 12/18/16 04:20 98.1 F 81 18 124/59 97 Open Heart Registry Aspirin Cont/Prescribed at DC: Yes Beta Amador Cont/Prescribed at DC: Yes Statin Cont/Prescribed at DC: Yes CASSANDRA/ARB Cont/Prescribed at DC: Yes - VTE Reasons for not Prescribing Prophylaxis: Treatment not Indicated - Low risk for VTE Documentation of Mechanical Device: Graduated compression elastic hosiery
[2016-12-18] MEDS: Chlorhexidine Rinse 15 ML MOUTHWASH MM SCH (08:28)
[2016-12-18] MEDS: Furosemide 40 MG/4 ML VIAL IVP SCH (08:28)
[2016-12-18] MEDS: Aspirin Enteric Coated 81 MG Tablet PO SCH (08:31)
[2016-12-18] MEDS: Loratadine 10 MG TABLET PO SCH (08:31)
[2016-12-18] MEDS: Gabapentin 300 MG CAPSULE PO SCH (08:31)
[2016-12-18] MEDS: Folic Acid 1 MG TABLET PO SCH (08:31)
[2016-12-18] MEDS: clonazePAM 1 MG TABLET PO SCH (08:31)
[2016-12-18] MEDS: predniSONE 5 MG TABLET PO SCH (08:31)
[2016-12-18] MEDS: Metoprolol 100 MG TABLET PO SCH (08:31)
[2016-12-18] MEDS: Methocarbamol 750 MG TABLET PO SCH (08:31)
[2016-12-18] MEDS: Insulin LISPRO 300 UNITS/3 ML VIAL SQ SCH ×2 (08:32→12:09)
[2016-12-18] MEDS: Fluticasone Propionate Nasal 50 MCG/SPRAY BOTTLE NS SCH (08:33)
[2016-12-18 11:16] VITALS: BP 108/66
== END 2016-12-18 15:38 | disposition home or self-care (01) | DRG 220 ==
LOC: SAMDAY 06:45 → ICNU 10:23 → 2NNU 12-14 18:12
PROVIDERS: ADMIT Thoracic Surgery (Cardiothoracic Vascular Surgery); ATTEND Thoracic Surgery (Cardiothoracic Vascular Surgery)

== ENCOUNTER 2018-03-22 19:58 | Inpatient (IN) ==
--- NOTE | 2018-03-22 20:14 | Emergency Department Note ---
Disposition Clinical Impression: Hyponatremia Disposition: Admitted As Inpatient Condition: Good Time of Disposition: 04:32 General Adult HPI - General Chief complaint: ED Shortness of Breath/Dyspnea Stated complaint: Sodium is low Time Seen by Provider: 03/22/18 20:09 Nursing Notes Reviewed: Yes Vital Signs Reviewed: Yes - History of Present Illness HPI Narrative: 57-year-old female presents from home for evaluation of 2 weeks of progressive weakness and dizziness when she stands up. She has associated dyspnea and occasional palpitations. Her custom grinder nadine routine labs and found her to be hyponatremic. She was called yesterday and told to come in however she did not have the energy to do so thus her presentation today. She has a history of RA with chronic prednisone 5mg daily for years. 3 weeks ago a prednisone burst for sinusitis. 2 weeks ago completed a taper to be off of prednisone. Since then, has progressively felt worse. PMH: aortic stenosis, RA, Hypertension, Dyslipidemia, Current Smoker Medications include trazodone, risperidone, lasix, cymbalta, previous chronic prednisone. ROS: Pos: as above Neg: fever, chills, nausea, vomiting, change in her chronic back pain, change in bowel or bladder, abdominal pain. Pain Scale: 3 - Related Data Home Medications Medication Instructions Recorded Confirmed Aspirin [Lo-Dose Aspirin EC] 81 mg PO DAILY 11/23/16 03/19/18 Diltiazem HCl [Diltiazem 24Hr Cd] 120 mg PO DAILY 11/23/16 03/19/18 Duloxetine HCl [Cymbalta] 120 mg PO DAILY 11/23/16 03/19/18 Fluticasone Propionate Nasal 1 spray NS DAILY 11/23/16 03/19/18 [Flonase] Hydroxychloroquine [Plaquenuil] 200 mg PO BID 11/23/16 03/19/18 Lisinopril [Zestril] 5 mg PO DAILY 11/23/16 03/19/18 Loratadine [Allergy Relief] 10 mg PO DAILY 11/23/16 03/19/18 Methocarbamol [Robaxin-750] 750 mg PO TID 11/23/16 03/19/18 Methotrexate [Otrexup] 12.5 mg PO FR 11/23/16 03/19/18 Omeprazole [PriLOSEC] 40 mg PO DAILY 11/23/16 03/19/18 Tramadol HCl [Ultram] 50 mg PO Q8H PRN 11/23/16 03/19/18 clonazePAM [Klonopin] 1 mg PO BID 11/23/16 03/19/18 risperiDONE [Risperidone] 2 mg PO HS 11/23/16 03/19/18 Atorvastatin Calcium [Lipitor] 20 mg PO DAILY 12/12/16 03/19/18 Calcium Carbonate [Calcium] 600 mg PO BID 12/12/16 03/19/18 Folic Acid 1 mg PO DAILY 12/12/16 03/19/18 Furosemide [Lasix] 20 mg PO BID 12/12/16 03/19/18 Montelukast [Singulair] 10 mg PO HS 12/12/16 03/19/18 Naproxen [Naprosyn] 500 mg PO BID 12/12/16 03/19/18 Potassium Chloride [K-Tab ER] 20 meq PO DAILY 12/12/16 03/19/18 Varenicline Tartrate [Chantix 1 mg PO BID 12/12/16 03/19/18 Continuing Months Pack] hydroCHLOROthiazide 12.5 mg PO DAILY 12/12/16 03/19/18 [Hydrochlorothiazide] Previous Rx's Medication Instructions Recorded Metoprolol [Lopressor] 50 mg PO BID #60 tablet 12/18/16 OxyCODONE/APAP 5/325 [Percocet 1 each PO Q4HR PRN #30 tablet 12/18/16 5/325 MG] traZODone [TraZODone] 25 mg PO HS #20 tablet 12/18/16 Ranitidine HCl [Zantac] 300 mg PO HS #30 tablet 09/20/17 Cephalexin [Keflex] 500 mg PO BID #14 capsule 03/19/18 Phenazopyridine HCl [Pyridium] 200 mg PO TID #6 tab 03/19/18 Allergies Allergy/AdvReac Type Severity Reaction Status Date / Time No Known Allergies Allergy Verified 03/19/18 16:38 All systems ED: reviewed and negative except as stated. Review of Systems: As Per HPI Past Medical History - Past Medical History Medical history: Reports: non-contributory Surgical history: Reports: cholecystectomy, hysterectomy Psychiatric history: Reports: anxiety, depression - Social History Smoking Status: Never smoker Smokeless Tobacco Status: No Alcohol use: Reports: none Drug use: Reports: none Physical Exam Vital Signs Reviewed General: Patient is alert, oriented, and in no acute distress. Head: atraumatic, normocephalic Eye: normal appearance, no scleral icterus, no conjunctival injection ENT: mucous membranes moist, normal external ear exam Neck: normal inspection, trachea midline, full ROM Chest: normal inspection, symmetric chest rise Respiratory: Good respiratory effort. Bilateral breath sounds are clear without wheezing, crackles, or rhonchi. Cardiovascular: Regular rate and rhythm. No clicks, rubs, gallops, or murmors. Normal heart sounds. Abdomen: Bowel sounds present normoactive x-4 quadrants. Abdomen is soft, nondistended, and nontender. No guarding or rebound. No organomegaly noted. Musculoskeletal: Spontaneously moving all extremities. Skin: warm, dry, intact. Neuro: Alert and oriented x4 though speech is slow but not slurred. Facial asymmetry. Sensation light touch intact and equal bilaterally in upper extremities. Mentation is slightly slowed however patient is aware of this and asks for clarification as needed. Psych: Patient's affect is appropriate for situation. Course Course Narrative: Repeat sodium is 119. Down from 125 2 days ago. Suspect hypovolemic hyponatremia. Concern this is iatrogenic given her chronic prednisone, multiple psychiatric medications, and diuretic. We will begin 0.9% normal saline at 100% maintenance rate. Patient's hyponatremia likely chronic and slow in his progression therefore will cautiously hydrate. EKG dated 03/22/18 at 21:33 interpreted as sinus rhythm with rate of 79. Portal and left axis. PA 198, QTc 497. While precordial ST depression. Compared to previous dated 12/12/2016 showing no acute ischemic changes or comparison. After 3 hours emergency department, still awaiting chest x-ray. Patient's radiology. Otherwise, patient is ready for admission. Chest x-ray is unremarkable. Chest X-Ray 03/22/18 21:41 IMPRESSION: No acute process. D/ / Virgilio Lawson MD / Virgilio Lawson MD Interpreting Provider: Virgilio Lawson MD Vital Signs Temperature 98.5 F 03/22/18 20:03 Pulse Rate 89 03/22/18 20:03 Respiratory Rate 20 03/22/18 20:03 Blood Pressure 124/84 03/22/18 20:03 O2 Sat by Pulse Oximetry 98 03/22/18 20:03 Temperature 97.7 F 03/23/18 03:38 Pulse Rate 77 03/23/18 03:38 Respiratory Rate 18 03/23/18 03:38 Blood Pressure 144/66 03/23/18 03:38 O2 Sat by Pulse Oximetry 96 03/23/18 03:38 Oxygen Delivery Oxygen Delivery Room Air Medical Decision Making - Lab Data Result diagrams: 03/23/18 01:28 Lab Results 03/22/18 03/22/18 03/22/18 Range/Units 20:11 21:06 21:06 Sodium 119 L* (136-145) mEq/L Potassium 5.0 (3.5-5.1) mEq/L Chloride 96 L (98-107) mEq/L Carbon Dioxide 22 L (23-29) mEq/L BUN 12 (6-20) mg/dL Creatinine 1.58 H (0.60-1.20) mg/dL Est GFR ( Amer) 41 L (> 60) Est GFR (Non-Af Amer) 33 L (> 60) BUN/Creatinine Ratio 8 (6-26) Glucose 94 (70-105) mg/dL Calculated Osmolality 248 L (280-300) Calcium 9.0 (8.6-10.3) mg/dL Magnesium 1.7 (1.6-2.6) mg/dL Troponin I (< 0.04) ng/mL Urine Osmolality 227 L (300-1090) mOsm/kg Urine Sodium 10.3 mEq/L 03/22/18 Range/Units 21:54 Sodium (136-145) mEq/L Potassium (3.5-5.1) mEq/L Chloride (98-107) mEq/L Carbon Dioxide (23-29) mEq/L BUN (6-20) mg/dL Creatinine (0.60-1.20) mg/dL Est GFR ( Amer) (> 60) Est GFR (Non-Af Amer) (> 60) BUN/Creatinine Ratio (6-26) Glucose (70-105) mg/dL Calculated Osmolality (280-300) Calcium (8.6-10.3) mg/dL Magnesium (1.6-2.6) mg/dL Troponin I 0.03 (< 0.04) ng/mL Urine Osmolality (300-1090) mOsm/kg Urine Sodium mEq/L
[2018-03-22 20:55] LABS: Magnesium 1.7 mg/dL (1.6-2.6)
[2018-03-22] MEDS ORDERED: 0.9 % Sodium Chloride 1,000 ML IVC SCH (21:15)
--- NOTE | 2018-03-22 22:07 | Emergency Department Note ---
Disposition Clinical Impression: Hyponatremia Disposition: Admitted As Inpatient Condition: Good General Adult HPI - General Chief complaint: ED Shortness of Breath/Dyspnea Stated complaint: Sodium is low Time Seen by Provider: 03/22/18 20:09 Source: patient Limitations: no limitations Nursing Notes Reviewed: Yes Vital Signs Reviewed: Yes - History of Present Illness Pain Scale: 3 - Related Data Home Medications Medication Instructions Recorded Confirmed Aspirin [Lo-Dose Aspirin EC] 81 mg PO DAILY 11/23/16 03/19/18 Diltiazem HCl [Diltiazem 24Hr Cd] 120 mg PO DAILY 11/23/16 03/19/18 Duloxetine HCl [Cymbalta] 120 mg PO DAILY 11/23/16 03/19/18 Fluticasone Propionate Nasal 1 spray NS DAILY 11/23/16 03/19/18 [Flonase] Hydroxychloroquine [Plaquenuil] 200 mg PO BID 11/23/16 03/19/18 Lisinopril [Zestril] 5 mg PO DAILY 11/23/16 03/19/18 Loratadine [Allergy Relief] 10 mg PO DAILY 11/23/16 03/19/18 Methocarbamol [Robaxin-750] 750 mg PO TID 11/23/16 03/19/18 Methotrexate [Otrexup] 12.5 mg PO FR 11/23/16 03/19/18 Omeprazole [PriLOSEC] 40 mg PO DAILY 11/23/16 03/19/18 Tramadol HCl [Ultram] 50 mg PO Q8H PRN 11/23/16 03/19/18 clonazePAM [Klonopin] 1 mg PO BID 11/23/16 03/19/18 risperiDONE [Risperidone] 2 mg PO HS 11/23/16 03/19/18 Atorvastatin Calcium [Lipitor] 20 mg PO DAILY 12/12/16 03/19/18 Calcium Carbonate [Calcium] 600 mg PO BID 12/12/16 03/19/18 Folic Acid 1 mg PO DAILY 12/12/16 03/19/18 Furosemide [Lasix] 20 mg PO BID 12/12/16 03/19/18 Montelukast [Singulair] 10 mg PO HS 12/12/16 03/19/18 Naproxen [Naprosyn] 500 mg PO BID 12/12/16 03/19/18 Potassium Chloride [K-Tab ER] 20 meq PO DAILY 12/12/16 03/19/18 Varenicline Tartrate [Chantix 1 mg PO BID 12/12/16 03/19/18 Continuing Months Pack] hydroCHLOROthiazide 12.5 mg PO DAILY 12/12/16 03/19/18 [Hydrochlorothiazide] Previous Rx's Medication Instructions Recorded Metoprolol [Lopressor] 50 mg PO BID #60 tablet 12/18/16 OxyCODONE/APAP 5/325 [Percocet 1 each PO Q4HR PRN #30 tablet 12/18/16 5/325 MG] traZODone [TraZODone] 25 mg PO HS #20 tablet 12/18/16 Ranitidine HCl [Zantac] 300 mg PO HS #30 tablet 09/20/17 Cephalexin [Keflex] 500 mg PO BID #14 capsule 03/19/18 Phenazopyridine HCl [Pyridium] 200 mg PO TID #6 tab 03/19/18 Allergies Allergy/AdvReac Type Severity Reaction Status Date / Time No Known Allergies Allergy Verified 03/19/18 16:38 Past Medical History - Past Medical History Medical history: Reports: non-contributory Surgical history: Reports: cholecystectomy, hysterectomy Psychiatric history: Reports: anxiety, depression - Social History Smoking Status: Never smoker Smokeless Tobacco Status: No Alcohol use: Reports: none Drug use: Reports: none Physical Exam - General Limitations: no limitations General appearance: alert, in no apparent distress Course Vital Signs Temperature 98.5 F 03/22/18 20:03 Pulse Rate 89 03/22/18 20:03 Respiratory Rate 20 03/22/18 20:03 Blood Pressure 124/84 03/22/18 20:03 O2 Sat by Pulse Oximetry 98 03/22/18 20:03 Temperature 97.7 F 03/23/18 03:38 Pulse Rate 77 03/23/18 03:38 Respiratory Rate 18 03/23/18 03:38 Blood Pressure 144/66 03/23/18 03:38 O2 Sat by Pulse Oximetry 96 03/23/18 03:38 Oxygen Delivery Oxygen Delivery Room Air Medical Decision Making - Medical Records Medical records reviewed: Yes I reviewed the patient's medical records. - Lab Data Lab results reviewed: Yes I reviewed the patient's lab results. Result diagrams: 03/23/18 01:28 Lab Results 03/22/18 03/22/18 03/22/18 Range/Units 20:11 21:06 21:06 Sodium 119 L* (136-145) mEq/L Potassium 5.0 (3.5-5.1) mEq/L Chloride 96 L (98-107) mEq/L Carbon Dioxide 22 L (23-29) mEq/L BUN 12 (6-20) mg/dL Creatinine 1.58 H (0.60-1.20) mg/dL Est GFR ( Amer) 41 L (> 60) Est GFR (Non-Af Amer) 33 L (> 60) BUN/Creatinine Ratio 8 (6-26) Glucose 94 (70-105) mg/dL Calculated Osmolality 248 L (280-300) Calcium 9.0 (8.6-10.3) mg/dL Magnesium 1.7 (1.6-2.6) mg/dL Troponin I (< 0.04) ng/mL Urine Osmolality 227 L (300-1090) mOsm/kg Urine Sodium 10.3 mEq/L 03/22/18 Range/Units 21:54 Sodium (136-145) mEq/L Potassium (3.5-5.1) mEq/L Chloride (98-107) mEq/L Carbon Dioxide (23-29) mEq/L BUN (6-20) mg/dL Creatinine (0.60-1.20) mg/dL Est GFR ( Amer) (> 60) Est GFR (Non-Af Amer) (> 60) BUN/Creatinine Ratio (6-26) Glucose (70-105) mg/dL Calculated Osmolality (280-300) Calcium (8.6-10.3) mg/dL Magnesium (1.6-2.6) mg/dL Troponin I 0.03 (< 0.04) ng/mL Urine Osmolality (300-1090) mOsm/kg Urine Sodium mEq/L - Radiology Data Radiology results reviewed: Yes I reviewed the patient's radiology results. Chest X-Ray 03/22/18 21:41 IMPRESSION: No acute process. D/ / Virgilio Lawson MD / Virgilio Lawson MD Interpreting Provider: Virgilio Lawson MD - EKG Data EKG #1 EKG attestation: Yes I reviewed and interpreted this EKG. EKG results narrative: EKG shows a sinus rhythm with ventricular rate is 79. Mild anterior ST segment depression. No arrhythmia or ectopy. Attestation Statement - Attestation Attestation: I, Vance Carey MD, personally evaluated this patient and discussed their management with the resident physician. I reviewed the resident's note and agree with the documented findings, medical decision making, and plan of care. 57-year-old female presents to the emergency department with a complaint of her sodium level being low. Patient complains of feeling tired and weak for the past several months which seems to be getting gradually worse. She recently had some blood work by her ripening room hand and was called yesterday and advised that her sodium level was low and she needed to come to the emergency department. She states she was busy so she waited until tonight come to the emergency department. She states that she has been thirsty and drinking a lot of water recently. She just complains of generalized weakness and fatigue. No chest pain. No syncope. No shortness of breath. No vomiting or diarrhea. On examination patient is a well-developed well-nourished female in no acute distress. She is alert and oriented 3. There is no cyanosis or diaphoresis. Breath sounds are clear and equal bilaterally. Heart regular rate and rhythm. Abdomen soft and nontender with normal bowel sounds. No gross focal neurological deficits. Labs reviewed. Sodium 119. Chest x-ray negative. The hospitalist, Dr. Abraham, was consulted and accepted admission of the patient.
[2018-03-23] MEDS ORDERED: *HR* OxyCODONE/APAP 5/325 TABLET PO PRN (01:10)
[2018-03-23] MEDS ORDERED: Naloxone 0.4 MG/ML INJ IVP PRN (01:14)
[2018-03-23] MEDS ORDERED: Ondansetron 4 MG/2 ML VIAL IVP PRN (01:25)
--- NOTE | 2018-03-23 01:25 | Internal Med History&Physical ---
Date of Encounter: 03/23/18 Time of Encounter: : Internal Medicine - H&P: HPI Chief complaint: abnormal lab Admitted From: Home Plans for Post Hospital Care: Home History of present illness: Ms. Llanes is a 57 year old who reports a medical history of aortic stenosis that required surgical repair, rheumatoid arthritis, osteoporosis, degenerative disc disease, fibromyalgia, anxiety disorder with multiple psychiatric medications and is a chronic smoker who was called in by her call center director to come to the ER due to labs done that showed her to be hyponatremic. She states that she has been feeling progressively weak and lightheaded over the past couple of weeks but has never had a syncopal episode. She was chronically on steroids for the past 3 years and she says that a few weeks ago she received a burst dose of redness own supposedly for sinusitis and completed a taper 2 weeks ago and since then has been off steroids completely. On arrival to the emergency room she was seen to have a sodium of 119 which is down from 125 two days ago. Her medication list is reviewed and notable for multiple psychiatric medications as well as diuretics including furosemide and HCTZ. She is noted to have a cast on her left foot which she says is due to an ulcer she has and is getting wound care at [facility] and next scheduled appointment is Saturday morning at 10 AM and it concerns her if she misses this appointment as she missed her last one. On my assessment she was sitting up in bed, slightly slow to speech but coherent. She denies headache and dizziness at this time. She reports that for the past 2 weeks she has been very thirsty and over the recent days she has had decreased urine output with darker urine. She denies dysuria at this time however she states that in the past week she has been treated for a UTI and is currently on cephalexin. Past Med Surg Social Fam HX - Past Medical History Medical history: non-contributory Additional medical history: AORTIC STENOSIS. RAD Psychiatric history: anxiety, depression - Past Surgical History Surgical History: cholecystectomy, hysterectomy Additional surgical history: RIGHT FOOT 2ND TOE SURGERY - Social History Smoking Status: Never smoker Smokeless Tobacco Status: No Alcohol use: none Drug use: none Internal Medicine - H&P: Meds Aspirin [Lo-Dose Aspirin EC] 81 mg PO DAILY 11/23/16 [History] Diltiazem HCl [Diltiazem 24Hr Cd] 120 mg PO DAILY 11/23/16 [History] Duloxetine HCl [Cymbalta] 120 mg PO DAILY 11/23/16 [History] Fluticasone Propionate Nasal [Flonase] 1 spray NS DAILY 11/23/16 [History] Hydroxychloroquine [Plaquenuil] 200 mg PO BID 11/23/16 [History] Lisinopril [Zestril] 5 mg PO DAILY 11/23/16 [History] Loratadine [Allergy Relief] 10 mg PO DAILY 11/23/16 [History] Methocarbamol [Robaxin-750] 750 mg PO TID 11/23/16 [History] Methotrexate [Otrexup] 12.5 mg PO FR 11/23/16 [History] Omeprazole [PriLOSEC] 40 mg PO DAILY 11/23/16 [History] Tramadol HCl [Ultram] 50 mg PO Q8H PRN 11/23/16 [History] clonazePAM [Klonopin] 1 mg PO BID 11/23/16 [History] risperiDONE [Risperidone] 2 mg PO HS 11/23/16 [History] Atorvastatin Calcium [Lipitor] 20 mg PO DAILY 12/12/16 [History] Calcium Carbonate [Calcium] 600 mg PO BID 12/12/16 [History] Folic Acid 1 mg PO DAILY 12/12/16 [History] Furosemide [Lasix] 20 mg PO BID 12/12/16 [History] Montelukast [Singulair] 10 mg PO HS 12/12/16 [History] Naproxen [Naprosyn] 500 mg PO BID 12/12/16 [History] Potassium Chloride [K-Tab ER] 20 meq PO DAILY 12/12/16 [History] Varenicline Tartrate [Chantix Continuing Months Pack] 1 mg PO BID 12/12/16 [ History] hydroCHLOROthiazide [Hydrochlorothiazide] 12.5 mg PO DAILY 12/12/16 [History] Metoprolol [Lopressor] 50 mg PO BID #60 tablet 12/18/16 [Rx] OxyCODONE/APAP 5/325 [Percocet 5/325 MG] 1 each PO Q4HR PRN #30 tablet 12/18/16 [Rx] traZODone [TraZODone] 25 mg PO HS #20 tablet 12/18/16 [Rx] Ranitidine HCl [Zantac] 300 mg PO HS #30 tablet 09/20/17 [Rx] Cephalexin [Keflex] 500 mg PO BID #14 capsule 03/19/18 [Rx] Phenazopyridine HCl [Pyridium] 200 mg PO TID #6 tab 03/19/18 [Rx] 3 Allergy/AdvReac Type Severity Reaction Status Date / Time No Known Allergies Allergy Verified 03/19/18 16:38 All Systems PM: A 10-system review of systems was performed and is negative for pertinent findings except as documented above in the HPI. - Constitutional Vitals: Temp Pulse Resp BP Pulse Ox 98.5 F 88 16 150/70 99 03/22/18 20:14 03/23/18 00:28 03/23/18 00:28 03/23/18 00:28 03/23/18 00:28 Exam: Vitals: Reviewed General: Well-developed but slowed mentation speech Skin: Pale skin. HEENT: Dry oral mucous membranes. Mild conjunctivae pallor. Neck: No lymphadenopathy. No JVD. No carotid bruits. No palpable thyroid. Chest: Normal thoracic expansion. Normal breath sounds. Heart: Normal S1 & S2; rhythmic. Abdomen: Non-distended, soft and non-tender to palpation. Extremities: Left leg in a cast with Mepilex dressing on the anterior aspect of her tirado. Neurological: Awake, alert and oriented to person, place and time. No focal deficits apparent. Psych: Affect appropriate. Internal Med - H&P Results - Labs CBC & Chem 7: 03/22/18 20:11 - Assessment and plan (1) Hyponatremia Current Visit: Yes Status: Acute Assessment and plan: Moderate in severity. 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 We will place on IV NS cautiously and check labs every 4 hours. May need nephrology consultation if she does not improve. For now her mental status is not warranting of hypertonic saline especially as this seems to be more of a chronic build up. (2) SUZANNA (acute kidney injury) Current Visit: Yes Status: Acute Assessment and plan: Stage 2 increase noted likely from reduced oral intake leading to dehydration. Will place on IVF and recheck. (3) Hypochloremia Current Visit: Yes Status: Acute Assessment and plan: Coupled with hyponatremia and SUZANNA. On IV NS and will recheck values. (4) Hypertension Current Visit: Yes Status: Acute Assessment and plan: Will continue lisinopril. Qualifiers: Hypertension type: essential hypertension Qualified Code(s): I10 - Essential (primary) hypertension (5) Rheumatoid arthritis Current Visit: Yes Status: Chronic Assessment and plan: On methotrexate weekly which can be continued upon discharge. Continue hydroxychloroquine BID. Will not start steroids. Qualifiers: Rheumatoid arthritis location: unspecified site Rheumatoid factor presence : unspecified presence Qualified Code(s): M06.9 - Rheumatoid arthritis, unspecified (6) Anxiety disorder Current Visit: Yes Status: Chronic Assessment and plan: Will continue anxiolytics. Qualifiers: Anxiety disorder type: generalized anxiety disorder Qualified Code(s): F41.1 - Generalized anxiety disorder (7) Aortic stenosis due to bicuspid aortic valve Current Visit: Yes Status: Chronic Assessment and plan: Not on anticoagulation. Asymptomatic. (8) UTI (urinary tract infection) Current Visit: Yes Status: Resolved Assessment and plan: Diagnosed in the past week and currently asymptomatic. No need to repeat urine studies. Qualifiers: Qualified Code(s): N39.0 - Urinary tract infection, site not specified (9) DVT prophylaxis Current Visit: Yes Status: Acute Assessment and plan: SubQ heparin. - Time Spent With Patient Total time spent is greater than 50% in coordination of care (as documented) at patient's floor/unit and/or counseling patient: Greater than 35 minutes
[2018-03-23 02:18] LABS: Calcium 8.8 mg/dL (8.6-10.3); Potassium 3.7 mEq/L (3.5-5.1)
[2018-03-23] MEDS ORDERED: 0.9 % Sodium Chloride 1,000 ML IVC SCH (02:54)
[2018-03-23 05:44] LABS: Basophils % 0.5 %; Hematocrit 27.1 % (35.3-44.9); Hemoglobin 8.9 g/dL (11.5-15.4); Immature Granulocytes % 3.5 % (0-4); Immature Platelets 1.9 % (1.1-6.1); Lymphocytes # 2.6 K/mcL (0.6-4.6); Lymphocytes % 40.5 %; Mean Corpuscular HGB Conc 32.8 g/dL (31.6-35.5); Mean Corpuscular Hemoglobin 34.1 pg (28.0-33.3); Mean Corpuscular Volume 103.8 fL (83.0-100.0); Mean Platelet Volume 8.7 fL (9.4-12.4); Monocytes # 0.7 K/mcL (0.0-1.3); Monocytes % 10.7 %; Neutrophils # 2.8 K/mcL (1.6-8.9); Platelet Count 161 K/mcL (140-400); Red Blood Count 2.61 M/mcL (3.82-4.97); Red Cell Distribution Width 17.5 % (11.5-14.5); Segmented Neutrophils % 44.8 %
[2018-03-23] MEDS: *HR* Heparin 5,000 UNIT/ML VIAL SQ SCH ×3 (05:50→20:31)
[2018-03-23 05:57] LABS: Calcium 8.6 mg/dL (8.6-10.3); Chol/HDL Ratio 2.9 (0-4.9); Potassium 3.4 mEq/L (3.5-5.1)
[2018-03-23] MEDS: traMADol 50 MG TABLET PO PRN ×2 (06:02→17:12)
--- NOTE | 2018-03-23 06:05 | Event Note ---
Date of Encounter: 03/23/18 Time of Encounter: 06:04 The patient's sodium increased from 119 to 126 at which time the rate of fluids was reduced. Now seen to have increased to 130. Will stop fluids now to avoid overly rapid correction. Her clinical status remains stable.
[2018-03-23] MEDS: Aspirin Enteric Coated 81 MG Tablet PO SCH (08:12)
[2018-03-23] MEDS: Loratadine 10 MG TABLET PO SCH (08:13)
[2018-03-23] MEDS: Folic Acid 1 MG TABLET PO SCH (08:13)
[2018-03-23] MEDS ORDERED: Diltiazem CD (24hr) 120 MG CAPSULE PO SCH (09:00)
[2018-03-23] MEDS: Fluticasone Propionate Nasal 50 MCG/SPRAY BOTTLE NS SCH (10:08)
[2018-03-23] MEDS ORDERED: clonazePAM 1 MG TABLET PO PRN ×2 (16:21→18:34)
--- NOTE | 2018-03-23 17:14 | Nephrology Consult Note ---
Date of Encounter: 03/23/18 Time of Encounter: 17:00 Assessment and Plan (1) Hyponatremia Status: Acute Hyponatremia acute on chronic, asymptomatic likely multifactorial with increased fluid intake due to thirst with hypotension, EtOH use Agree with stopping IVF Continue regular diet with salt Limit po fluids to 2 liters a day urine osm and sodium results noted, will check serum osm and uric acid levels (2) SUZANNA (acute kidney injury) Status: Acute Elevated SCr in the setting of hypotension and NSAIds use Continue adequat fluid intake Stop all NSAIDs History of Present Illness - Reason for Consult Consult date: 03/23/18 hyponatremia Requesting physician: Santiago Farnsworth - History of Present Illness 57 y o female with PMH of RA, osteoporosis, fibromyalgia, psychiatric disorder and s/p surgical repair sent in to the hospital for abnormal labs but also complaining of generalized fatigue. Sodium noted low at 119 but drastically improved within hours of IVF with NS. Renal consulted for help with this. NS already held with repeat sodium down to 128. No new medications per pt. SCr alos noted elevated at 1.58, GFR 33 on admission. Pt reports diuretic use chronically and has been drinking more water lately while eating less sodium in diet overall. Pt also reports daily EtOH use which she has been trying to decrease, currently at 4 bottle of beer a day. Past Med Surg Social Fam HX - Past Medical History Medical history: non-contributory Additional medical history: AORTIC STENOSIS. RAD Psychiatric history: anxiety, depression - Past Surgical History Surgical History: cholecystectomy, hysterectomy Additional surgical history: RIGHT FOOT 2ND TOE SURGERY - Social History Smoking Status: Never smoker Packs per day: 1 Smokeless Tobacco Status: No Alcohol use: none Drug use: none - Family History Father Living Status: Hx Family Cardiac Disorders: Yes ([place]) Mother Living Status: Hx Family Cardiac Disorders: Yes (CABG) Medications and Allergies Aspirin [Lo-Dose Aspirin EC] 81 mg PO DAILY 11/23/16 [History] Duloxetine HCl [Cymbalta] 120 mg PO DAILY 11/23/16 [History] Fluticasone Propionate Nasal [Flonase] 1 spray NS DAILY 11/23/16 [History] Hydroxychloroquine [Plaquenuil] 200 mg PO BID 11/23/16 [History] Methocarbamol [Robaxin-750] 750 mg PO TID 11/23/16 [History] Methotrexate [Otrexup] 2.5 mg PO FR 11/23/16 [History] Omeprazole [PriLOSEC] 40 mg PO DAILY 11/23/16 [History] Tramadol HCl [Ultram] 50 mg PO Q8H PRN 11/23/16 [History] clonazePAM [Klonopin] 1 mg PO BID PRN 11/23/16 [History] risperiDONE [Risperidone] 1 mg PO HS 11/23/16 [History] Folic Acid 1 mg PO DAILY 12/12/16 [History] Furosemide [Lasix] 40 mg PO DAILY 12/12/16 [History] Montelukast [Singulair] 10 mg PO HS 12/12/16 [History] Metoprolol [Lopressor] 50 mg PO BID #60 tablet 12/18/16 [Rx] Ranitidine HCl [Zantac] 300 mg PO HS #30 tablet 09/20/17 [Rx] Cephalexin [Keflex] 500 mg PO BID #14 capsule 03/19/18 [Rx] Phenazopyridine HCl [Pyridium] 200 mg PO TID #6 tab 03/19/18 [Rx] Calcium Carbonate/Vitamin D3 [Calcium 600 + Vit D Tablet] 1 tab PO BID 03/23/18 [History] Citalopram Hydrobromide [Celexa] 40 mg PO DAILY 03/23/18 [History] Docusate [Colace] 200 mg PO HS 03/23/18 [History] Gabapentin [Neurontin] 300 mg PO DAILY 03/23/18 [History] Glucosamine HCl 500 mg PO BID 03/23/18 [History] Lisinopril [Zestril] 10 mg PO DAILY 03/23/18 [History] Potassium Chloride [Klor-Con 10] 10 meq PO DAILY 03/23/18 [History] Topiramate [Topamax] 50 mg PO BID 03/23/18 [History] hydrOXYzine HCl [Hydroxyzine HCl] 25 mg PO TID PRN 03/23/18 [History] 3 Allergy/AdvReac Type Severity Reaction Status Date / Time No Known Allergies Allergy Verified 03/23/18 18:07 Review of Systems All Systems: reviewed and no additional remarkable complaints except as stated ( 10 systems reviewed) Exam - Vital Signs Vital signs: Initial Vital Signs Temp Pulse Resp BP Pulse Ox 98.5 F 89 20 124/84 98 08/18/18 20:03 03/22/18 20:03 03/22/18 20:03 03/22/18 20:03 03/22/18 20:03 Vital Signs - Last 8 Hours Temp Pulse Resp BP Pulse Ox 03/23/18 16:23 98.0 F 74 16 129/69 92 03/23/18 15:57 77 03/23/18 11:59 98.7 F 85 18 115/65 94 03/23/18 11:55 82 Intake and Output 03/23/18 03/23/18 03/23/18 07:59 15:59 23:59 Intake Total 800 / 800 720 / 720 Output Total 1200 / 1200 Balance -400 / -400 720 / 720 Intake: IV Fluids 800 / 800 0.9 % Sodium Chloride 1,000 ML 800 / 800 @ 135 mls/hr IVC .[id number] [facility] Rx #:[id number] Oral 720 / 720 Output: Urine 1200 / 1200 Other: Meal Lunch Percent of Meal Consumed 95% Weight 95 kg Patient Weight 03/23/18 23:59 Weight 95 kg - General Appearance General appearance: well-developed, well-nourished EENT: ATNC, mucous membranes moist Neck: no JVD, supple Respiratory: clear Cardiology: no edema, normal S1, normal S2 Gastrointestinal: no tenderness, no guarding Integumentary: warm and dry Neurologic: no focal deficit Musculoskeletal: no deformities Psychiatric: mood/affect appropriate, cooperative Results - Lab Results 03/24/18 08:56 03/24/18 08:56 Most recent lab results Calcium 8.6 mg/dL (8.6-10.3) 03/23/18 04:36 Magnesium 1.7 mg/dL (1.6-2.6) 03/22/18 20:11 Urine Sodium 10.3 mEq/L 03/22/18 21:06 Consult Discharge Plan - Plan Instructions: Hyponatremia (DC), Abuse of Alcohol (DC), Fluid Restriction (DC) Referrals: [facility], Wound Clinic [Other] - 03/31/18 2:45 pm Becki Ruggiero CNP [Primary Care Provider] - 04/03/18 10:15 am ()
[2018-03-23] MEDS ORDERED: *HR* LORazepam 2 MG/ML VIAL IVP PRN (18:32)
--- NOTE | 2018-03-23 18:32 | Event Note ---
Date of Encounter: 03/23/18 Time of Encounter: 11:00 Patient seen by a nocturnalist earlier this morning and also by myself. Sodium overcorrected this morning and IV fluids discontinued. Nephrology consulted at and appreciate recommendations
[2018-03-23] MEDS ORDERED: NON-FORMULARY MEDICATION 1 EACH EACH (Hydroxyzine Hcl [Hydroxyzine Hcl] 25 MG) PO PRN (18:34)
[2018-03-23] MEDS: cephALEXin 500 MG CAPSULE PO SCH (20:28)
[2018-03-23] MEDS ORDERED: Famotidine 20 MG TABLET PO SCH (21:00)
[2018-03-23] MEDS ORDERED: Gabapentin 300 MG CAPSULE PO SCH (21:00)
[2018-03-23] MEDS ORDERED: GLUCOSAMINE HCL 500 MG PO SCH (21:00)
[2018-03-23] MEDS ORDERED: NON-FORMULARY MEDICATION 1 EACH EACH (Calcium Carbonate/Vitamin D3 [Calcium 600 + Vit D Ta PO SCH (21:00)
[2018-03-23] MEDS ORDERED: risperiDONE 1 MG TABLET PO SCH (21:00)
[2018-03-23] MEDS ORDERED: traZODone 50 MG TABLET PO SCH (21:00)
[2018-03-23] MEDS: Methocarbamol 750 MG TABLET PO SCH (21:05)
[2018-03-23] MEDS: Topiramate 25 MG TABLET PO SCH (21:05)
[2018-03-23] MEDS: GLUCOSAMINE HCL 500 MG PO SCH (21:06)
[2018-03-24] MEDS: *HR* Heparin 5,000 UNIT/ML VIAL SQ SCH ×2 (05:23→14:25)
[2018-03-24] MEDS: Folic Acid 1 MG TABLET PO SCH (08:33)
[2018-03-24] MEDS: Methocarbamol 750 MG TABLET PO SCH ×2 (08:33→14:24)
[2018-03-24] MEDS: cephALEXin 500 MG CAPSULE PO SCH (08:34)
[2018-03-24] MEDS: Loratadine 10 MG TABLET PO SCH (08:34)
[2018-03-24] MEDS: GLUCOSAMINE HCL 500 MG PO SCH (08:35)
[2018-03-24] MEDS: Aspirin Enteric Coated 81 MG Tablet PO SCH (08:35)
[2018-03-24] MEDS: Topiramate 25 MG TABLET PO SCH (08:35)
[2018-03-24] MEDS: Fluticasone Propionate Nasal 50 MCG/SPRAY BOTTLE NS SCH (08:40)
[2018-03-24] MEDS ORDERED: Gabapentin 300 MG CAPSULE PO SCH (09:00)
[2018-03-24] MEDS ORDERED: Furosemide 20 MG TABLET PO SCH (09:00)
[2018-03-24 09:20] LABS: Basophils % 0.5 %; Hematocrit 30.5 % (35.3-44.9); Hemoglobin 9.6 g/dL (11.5-15.4); Immature Granulocytes % 3.7 % (0-4); Lymphocytes # 2.2 K/mcL (0.6-4.6); Lymphocytes % 49.7 %; Mean Corpuscular HGB Conc 31.5 g/dL (31.6-35.5); Mean Corpuscular Hemoglobin 33.4 pg (28.0-33.3); Mean Corpuscular Volume 106.3 fL (83.0-100.0); Mean Platelet Volume 8.8 fL (9.4-12.4); Monocytes # 0.3 K/mcL (0.0-1.3); Monocytes % 7.8 %; Neutrophils # 1.7 K/mcL (1.6-8.9); Platelet Count 145 K/mcL (140-400); Red Blood Count 2.87 M/mcL (3.82-4.97); Red Cell Distribution Width 17.4 % (11.5-14.5); Segmented Neutrophils % 38.3 %
[2018-03-24 09:44] LABS: BUN/Creatinine Ratio 8 (6-26); Blood Urea Nitrogen 7 mg/dL (6-20); Calcium 9.3 mg/dL (8.6-10.3); Carbon Dioxide 21 mEq/L (23-29); Chloride 101 mEq/L (98-107); Glucose 123 mg/dL (70-105); Osmolality,Calculated 273 (280-300); Potassium 4.2 mEq/L (3.5-5.1); Sodium 132 mEq/L (136-145); eGFR For Non-African Americans > 60 (> 60)
--- NOTE | 2018-03-24 13:14 | Podiatry Consult Note ---
Date of Encounter: 03/24/18 Time of Encounter: 12:30 Assessment and Plan (1) Ulcer Current visit: Yes Status: Acute Patient has a total contact cast on the LLE. Total contact cast removed. Dried callused lesion to the distal plantar aspect of the left great toe, s/p sharp cutting with a #15 sclapel blade revealed a healed ulceration, no open area, no drainage, no periwound erythema, no fluctuance, no swelling. Plan: Dry sterile dressing applied to left great toe after bedside debridement. Recommend patient continue with protective weight bearing in post op shoe until new shoes are obtained from [facility]. Follow up at [facility] wound care in one week. Verbal consent obtained, risks vs. benefits discussed prior to debridement of callused lesion. (2) Hyponatremia Current visit: Yes Status: Acute (3) Rheumatoid arthritis Current visit: Yes Status: Chronic Qualifiers: Rheumatoid arthritis location: unspecified site Rheumatoid factor presence : unspecified presence Qualified Code(s): M06.9 - Rheumatoid arthritis, unspecified (4) Onychomycosis Current visit: Yes Status: Acute Thick, elongated spicules of toe nails to the medial border of both great toes. Dried blood observed to the medial nail groove of the right great toe. Plan: Spicules of toe nails trimmed with a nail nipper, no complications. Verbal consent obtained, risks vs. benefits discussed prior to trimming of toe nail spicules. History of Present Illness HPI: Ms. Llanes is a 57 year old female admit to [facility] for hyponatremia. Podiatry was consulted for an ulcer to the left great toe. Patient has a medical history significant for aortic stenosis, rheumatoid arthritis, osteoporosis, degenerative disc disease, fibromyalgia, anxiety disorder, and peripheral neuropathy. Patient states she has a history of pressure ulcers to both feet. Patient states she had osteomyelitis to toe #2 right in 2017 and had partial amputation. Patient currently has a total contact cast to the left foot for an ulceration to the left great toe. Patient states the ulcer to the left great toe started in February of 2017 and patient states she is being treated in the wound care center at [facility]. Patient states the cast has been on for two weeks and she was suppose to follow up with them today. No c/o fever, chills, cp, sob or calf pain. Patient states she does smoke a 1/2 ppd. Past Med Surg Social Fam HX - Past Medical History Medical history: non-contributory Additional medical history: AORTIC STENOSIS. RAD Psychiatric history: anxiety, depression - Past Surgical History Surgical History: cholecystectomy, hysterectomy Additional surgical history: RIGHT FOOT 2ND TOE SURGERY - Social History Smoking Status: Never smoker Packs per day: 1 Smokeless Tobacco Status: No Alcohol use: none Drug use: none - Family History Father Living Status: Hx Family Cardiac Disorders: Yes ([place]) Mother Living Status: Hx Family Cardiac Disorders: Yes (CABG) Medications and Allergies Aspirin [Lo-Dose Aspirin EC] 81 mg PO DAILY 11/23/16 [History] Duloxetine HCl [Cymbalta] 120 mg PO DAILY 11/23/16 [History] Fluticasone Propionate Nasal [Flonase] 1 spray NS DAILY 11/23/16 [History] Hydroxychloroquine [Plaquenuil] 200 mg PO BID 11/23/16 [History] Methocarbamol [Robaxin-750] 750 mg PO TID 11/23/16 [History] Methotrexate [Otrexup] 2.5 mg PO FR 11/23/16 [History] Omeprazole [PriLOSEC] 40 mg PO DAILY 11/23/16 [History] Tramadol HCl [Ultram] 50 mg PO Q8H PRN 11/23/16 [History] clonazePAM [Klonopin] 1 mg PO BID PRN 11/23/16 [History] risperiDONE [Risperidone] 1 mg PO HS 11/23/16 [History] Folic Acid 1 mg PO DAILY 12/12/16 [History] Furosemide [Lasix] 40 mg PO DAILY 12/12/16 [History] Montelukast [Singulair] 10 mg PO HS 12/12/16 [History] Metoprolol [Lopressor] 50 mg PO BID #60 tablet 12/18/16 [Rx] Ranitidine HCl [Zantac] 300 mg PO HS #30 tablet 09/20/17 [Rx] Cephalexin [Keflex] 500 mg PO BID #14 capsule 03/19/18 [Rx] Phenazopyridine HCl [Pyridium] 200 mg PO TID #6 tab 03/19/18 [Rx] Calcium Carbonate/Vitamin D3 [Calcium 600 + Vit D Tablet] 1 tab PO BID 03/23/18 [History] Citalopram Hydrobromide [Celexa] 40 mg PO DAILY 03/23/18 [History] Docusate [Colace] 200 mg PO HS 03/23/18 [History] Gabapentin [Neurontin] 300 mg PO DAILY 03/23/18 [History] Glucosamine HCl 500 mg PO BID 03/23/18 [History] Lisinopril [Zestril] 10 mg PO DAILY 03/23/18 [History] Potassium Chloride [Klor-Con 10] 10 meq PO DAILY 03/23/18 [History] Topiramate [Topamax] 50 mg PO BID 03/23/18 [History] hydrOXYzine HCl [Hydroxyzine HCl] 25 mg PO TID PRN 03/23/18 [History] 3 Allergy/AdvReac Type Severity Reaction Status Date / Time No Known Allergies Allergy Verified 03/23/18 18:07 All Systems Reviewed: The remainder of the systems were reviewed and are negative Physical Exam - Constitutional Vitals: Temp Pulse Resp BP Pulse Ox 97.9 F 83 16 117/74 94 03/24/18 11:00 03/24/18 11:41 03/24/18 11:00 03/24/18 11:00 03/24/18 11:00 Exam: General appearance: alert awake oriented X 3. Calm and pleasant, no acute distress.. Vascular: Pedal pulses +2/4 DP/PT , No evidence of cyanosis, pallor or rubor, Edema graded at 1+/4, Skin Tempature warm, No calf pain with manual compression. capillary refill time is immediate to digits. Neurologic: Sensation diminished with light touch to both feet Integument: callused lesion to the distal plantar aspect of the left great toe measuring 0.5 mm in diameter, s/p sharp cutting with a #15 scalpel blade revealed a healed ulceration. No erythema, no fluctuance, no warmth, no odor, no evidence of bacterial infection Dermatologic: thick elongated spicules of toe nails to the medial borders of both great toes with dried blood to the right great toe. Results - Labs Result Diagrams: 03/24/18 08:56 03/24/18 08:56 Labs: Abnormal lab results RBC 2.87 M/mcL (3.82-4.97) L 03/24/18 08:56 Hgb 9.6 g/dL (11.5-15.4) L 03/24/18 08:56 Hct 30.5 % (35.3-44.9) L 03/24/18 08:56 MCV 106.3 fL (83.0-100.0) H 03/24/18 08:56 MCH 33.4 pg (28.0-33.3) H 03/24/18 08:56 MCHC 31.5 g/dL (31.6-35.5) L 03/24/18 08:56 RDW 17.4 % (11.5-14.5) H 03/24/18 08:56 MPV 8.8 fL (9.4-12.4) L 03/24/18 08:56 Sodium 132 mEq/L (136-145) L 03/24/18 08:56 Carbon Dioxide 21 mEq/L (23-29) L 03/24/18 08:56 Glucose 123 mg/dL (70-105) H 03/24/18 08:56 Serum Osmolality 271 mOsm/kg (280-300) L 03/23/18 18:51 Calculated Osmolality 273 (280-300) L 03/24/18 08:56 Urine Osmolality 227 mOsm/kg (300-1090) L 03/22/18 21:06 H & H 03/24/18 Range/Units 08:56 Hgb 9.6 L (11.5-15.4) g/dL Hct 30.5 L (35.3-44.9) % All other labs normal. Consult Discharge Plan - Plan Instructions: Hyponatremia (DC), Abuse of Alcohol (DC), Fluid Restriction (DC) Referrals: [facility], Wound Clinic [Other] - 03/31/18 2:45 pm Becki Ruggiero CNP [Primary Care Provider] - 04/03/18 10:15 am ()
--- NOTE | 2018-03-24 15:21 | Electrocardiograph Report ---
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
[2018-03-24 15:58] VITALS: BP 138/66
--- NOTE | 2018-03-24 15:58 | Discharge Summary ---
- NOTES TO OUTPATIENT PROVIDER Notes to Outpatient Provider: Patient to have sodium levels monitored for hyponatremia by primary care provider Date of Encounter: 03/24/18 Time of Encounter: 11:00 - Discharge Diagnosis (1) Aortic stenosis due to bicuspid aortic valve Priority: Secondary Status: Chronic (2) UTI (urinary tract infection) Priority: Secondary Status: Resolved Qualifiers: Qualified Code(s): N39.0 - Urinary tract infection, site not specified; R31.9 - Hematuria, unspecified (3) Hyponatremia Priority: Primary Status: Acute (4) Hypertension Priority: Secondary Status: Acute Qualifiers: Hypertension type: essential hypertension Qualified Code(s): I10 - Essential (primary) hypertension (5) Rheumatoid arthritis Priority: Secondary Status: Chronic Qualifiers: Rheumatoid arthritis location: unspecified site Rheumatoid factor presence : unspecified presence Qualified Code(s): M06.9 - Rheumatoid arthritis, unspecified (6) Anxiety disorder Priority: Secondary Status: Chronic Qualifiers: Anxiety disorder type: generalized anxiety disorder Qualified Code(s): F41.1 - Generalized anxiety disorder (7) SUZANNA (acute kidney injury) Priority: Secondary Status: Acute (8) Hypochloremia Priority: Secondary Status: Acute Hospital course: Patient is a 57-year-old female with past medical history significant for alcohol dependence, rheumatoid arthritis, hypertension and mood disorder who presents to the ER on 03/22/18 due to hyponatremia. Patients hospital stay patients hyponatremia was corrected and nephrology was also consulted with recommendations for fluid restriction. Patient was also consulted about alcohol cessation. Patient will follow-up with primary care provider for monitoring of sodium levels. - Time Spent with Patient Total time spent providing and/or coordinating discharge services: Less than 30 minutes - Discharge Medications Home Medications: Aspirin [Lo-Dose Aspirin EC] 81 mg PO DAILY 11/23/16 [History] Duloxetine HCl [Cymbalta] 120 mg PO DAILY 11/23/16 [History] Fluticasone Propionate Nasal [Flonase] 1 spray NS DAILY 11/23/16 [History] Hydroxychloroquine [Plaquenuil] 200 mg PO BID 11/23/16 [History] Methocarbamol [Robaxin-750] 750 mg PO TID 11/23/16 [History] Methotrexate [Otrexup] 2.5 mg PO FR 11/23/16 [History] Omeprazole [PriLOSEC] 40 mg PO DAILY 11/23/16 [History] Tramadol HCl [Ultram] 50 mg PO Q8H PRN 11/23/16 [History] clonazePAM [Klonopin] 1 mg PO BID PRN 11/23/16 [History] risperiDONE [Risperidone] 1 mg PO HS 11/23/16 [History] Folic Acid 1 mg PO DAILY 12/12/16 [History] Furosemide [Lasix] 40 mg PO DAILY 12/12/16 [History] Montelukast [Singulair] 10 mg PO HS 12/12/16 [History] Metoprolol [Lopressor] 50 mg PO BID #60 tablet 12/18/16 [Rx] Ranitidine HCl [Zantac] 300 mg PO HS #30 tablet 09/20/17 [Rx] Cephalexin [Keflex] 500 mg PO BID #14 capsule 03/19/18 [Rx] Phenazopyridine HCl [Pyridium] 200 mg PO TID #6 tab 03/19/18 [Rx] Calcium Carbonate/Vitamin D3 [Calcium 600 + Vit D Tablet] 1 tab PO BID 03/23/18 [History] Citalopram Hydrobromide [Celexa] 40 mg PO DAILY 03/23/18 [History] Docusate [Colace] 200 mg PO HS 03/23/18 [History] Gabapentin [Neurontin] 300 mg PO DAILY 03/23/18 [History] Glucosamine HCl 500 mg PO BID 03/23/18 [History] Lisinopril [Zestril] 10 mg PO DAILY 03/23/18 [History] Potassium Chloride [Klor-Con 10] 10 meq PO DAILY 03/23/18 [History] Topiramate [Topamax] 50 mg PO BID 03/23/18 [History] hydrOXYzine HCl [Hydroxyzine HCl] 25 mg PO TID PRN 03/23/18 [History] Allergies/Adverse Reactions: 3 Allergy/AdvReac Type Severity Reaction Status Date / Time No Known Allergies Allergy Verified 03/23/18 18:07 Date of admission: 03/23/18 01:14 Primary care physician: Becki Ruggiero Consults: 03/23/18 01:40 Consult to Nutrition [CONS] Routine Comment: Consulting Provider: NUTRITION Reason for Dietary Consult: MST Score Consult to Pastoral Services [CONS] Routine Comment: 03/23/18 12:28 Consult to Nephrology [CONS] Routine Consulting Provider: Kid[facility] Martin/ORIMI/PARBryn/BROWN Reason for Consult: Sodium levels Call Completed: Yes Consult to Podiatry [CONS] Routine Consulting Provider: [facility] Reason for Consult: wound to left foot- has boot/ cast. Call Completed: No 03/23/18 18:32 Consult to Preschool Paraprofessional [CONS] Routine Reason for SW Consult: Alcohol abuse 03/24/18 12:37 Consult to Wound Care [CONS] Stat Reason for Consult: Patient has cast to LLE. Sees [facility] wound care for pressure ulcers to Left foot. Suppose to get changed weekly. Patient missed last week appointment and is scheduled to have changed today. Call Completed: Yes - Constitutional Vitals: Temp Pulse Resp BP Pulse Ox 97.9 F 73 16 117/74 94 03/24/18 11:00 03/24/18 15:03 03/24/18 11:00 03/24/18 11:00 03/24/18 11:00 General appearance: Present: A&O X 3 Exam: CORNELIUS - Cardiovascular Cardiovascular exam: Present: RRR, +S1, +S2. Absent: diastolic murmur, gallop, rubs, systolic murmur - Patient Status Disposition: Home, Self-Care Condition: Good - Discharge Instructions Instructions: Hyponatremia (DC), Abuse of Alcohol (DC), Fluid Restriction (DC) Follow Up With: [facility], Wound Clinic [Other] - 03/31/18 2:45 pm Becki Ruggiero CNP [Primary Care Provider] - 04/03/18 10:15 am ()
== END 2018-03-24 16:51 | disposition home or self-care (01) | DRG 641 ==
LOC: 2NNU 19:58 → EMEROOARM 19:58 → 2NNU 03-23 00:51 → SUATTDRO 03-23 01:14
PROVIDERS: ADMIT Internal Medicine; ATTEND Hospitalist